=== PATIENT | female | born 1955 | race Caucasian/White ===

== ENCOUNTER 2023-01-11 07:59 | Observation (INO) | payer MEDICARE, MEDICAID, SELFPAY ==
[2023-01-11] VITALS (18 sets, daily range): BP systolic 88–137; BP diastolic 45–89; PULSE 53–139; RESP 12–26; TEMP 36.6–37; O2SAT 93–98; BMI 35.0; BMI 36.3
--- NOTE | 2023-01-11 08:14 | PC.NURSE ---
Dr. Kat at bedside. He was notified pt meet criteria for CODE SEPSIS.
--- NOTE | 2023-01-11 08:31 | ECG_ITS ---
APPROVED REPORT Exam: Resting ECG HR:148 bpm ECG Measurements Heart Rate 148 AXES QRSd 77 QRS 17 QT 270 T -8 QTc 355 Conclusion ATRIAL FIBRILLATION WITH RAPID VENTRICULAR RESPONSE NONSPECIFIC ST & T-WAVE ABNORMALITY ABNORMAL RHYTHM ECG UNCONFIRMED REPORT Electronically signed by : Pancho Parikh MD 01/12/2023 08:49:16
[2023-01-11 08:35] LABS: Basophils % 0.2 % (0.1-2.0); Eosinophils # 0.2 K/mm3 (0.0-0.4); Eosinophils % 1.7 % (0.1-12.0); Hematocrit 47.3 % (37.0-47.0); Hemoglobin 14.7 g/dL (12.2-16.2); Lymphocytes # 1.7 K/mm3 (0.7-4.5); Mean Corpuscular HGB Conc 31.2 g/dL (31.8-35.4); Mean Corpuscular Hemoglobin 29.6 pg (27.0-31.2); Mean Platelet Volume 8.9 fl (7.4-10.4); Monocytes # 1.1 K/mm3 (0.1-1.0); Monocytes % 8.9 % (1.7-9.3); Neutrophils # 9.8 K/mm3 (1.8-7.8); Neutrophils % 76.2 % (37.0-80.0); Platelet Count 187 K/mm3 (142-424); Red Blood Count 4.97 M/mm3 (4.20-5.40); Red Cell Distribution Width 15.3 % (11.5-17.5); White Blood Count 12.8 K/mm3 (4.8-10.8)
[2023-01-11 08:39] LABS: Chloride 103 mmol/L (98-107); Potassium 4.7 mmoL/L (3.5-5.1); Sodium 138 mmol/L (136-145)
[2023-01-11 08:42] LABS: Alanine Aminotransferase 33 U/L (12-78); Albumin Level 4.1 g/dl (3.5-5.0); Albumin/Globulin Ratio 1.7 (1.1-1.8); Alkaline Phosphatase 78 U/L (38-126); Anion Gap 13.7 mEq/L (5-15); Aspartate Amino Transferase 27 U/L (14-36); Bilirubin,Total 0.6 mg/dl (0.2-1.3); Blood Urea Nitrogen 56 mg/dl (7-17); Calcium 9.3 mg/dl (8.4-10.2); Carbon Dioxide 26 mmol/L (22.0-30.0); Creatinine Clearance Estimated 63 mL/min (50-200); Estimated Glomerular Filt Rate 38 ml/min (>60); GFR (African American) 46 ML/MIN (>60); Globulin 2.4 g/dL (1.3-3.2); Glucose 159 mg/dl (74-100); Total Protein,Serum 6.5 g/dl (6.3-8.2)
--- NOTE | 2023-01-11 08:42 | HMH.EDGENADL ---
Discharge Plan Disposition Chief Complaint: GI Bleed Clinical Impressions Clinical Impression: AWILDA (acute kidney injury), Lower GI bleed, Sepsis, Atrial fibrillation with RVR Discharge ED Provider: Seven Kat General Adult HPI General Chief complaint: GI Bleed Stated complaint: Abd pain Time Seen by Provider: 01/11/23 08:03 Mode of Arrival: EMS Source of Information: Patient and EMS Limitations: No Limitations Description of Symptoms (Recalled from ER Triage Doc. by RN): Pt c/o bile emesis and bright red blood per rectum that began @ 0230 this am. States she was started on Macrobid yesterday d/t a UTI. She does take eliquis and 81mg aspirin daily d/t afib. Pt reports some abd pain but persistant nausea. EMS gave zofran 4mg odt in route. Pt reports hx of ABS surgeries 2x hiatla hernia & 1x umbuilical hernia repair. She is also s/p cholecycectomy and partial hysterectomy. History of Present Illness HPI narrative: 67-year-old female with history of hypertension, hyperlipidemia, CHF, A-fib on Xarelto, hemorrhoids, ventral hernia status post herniorrhaphy x3, hysterectomy, cholecystectomy, presenting with bright red blood per rectum, vomiting, abdominal distention. Patient states that she woke up today, 01/11 at 2 in the morning and felt nauseated. She had previously been constipated the past few days, but when waking up, felt nauseated and stomach cramping. Had large volume bowel movement that was dark, but normal consistency. Since that time, has had multiple, loose, bright red stools. She then started vomiting shortly thereafter nonbloody, nonbilious, yellowish foamy vomit. States that she is still and passing gas. Feeling nauseated at this time, but denies fevers, chills, cough, chest pain, shortness of breath, lightheadedness, syncope, recent travel. States that she has been taking all her medications as prescribed. Related Data Home Medications Medication Instructions Recorded Confirmed allopurinol 100 mg tablet 100 mg PO DAILY gout 01/11/23 01/11/23 amlodipine 5 mg tablet 5 mg PO DAILY High Blood Pressure 01/11/23 01/11/23 apixaban 5 mg tablet (Eliquis) 5 mg PO BID Blood Thinner/Afib 01/11/23 01/11/23 aspirin 81 mg chewable tablet 81 mg PO DAILY heart health 01/11/23 01/11/23 atorvastatin 10 mg tablet 10 mg PO HS Cholesterol 01/11/23 01/11/23 buspirone 15 mg tablet 15 mg PO BID Anxiety 01/11/23 01/11/23 calcium carbonate 250 mg-vitamin 2 tab PO DAILY Supplement 01/11/23 01/11/23 D3 3.125 mcg (125 unit) tablet (Oyster Shell + D3) diclofenac sodium 75 mg 75 mg PO BIDP PRN Mild Pain (Scale 01/11/23 01/11/23 tablet,delayed release Score 1-4) fluoxetine 40 mg capsule 40 mg PO DAILY Mood 01/11/23 01/11/23 fluticasone fur. 200 mcg-umeclid 1 ea inhalation DAILY Breathing 01/11/23 01/11/23 62.5 mcg-vilant 25 mcg Problems inhalat.powder (Trelegy Ellipta) furosemide 20 mg tablet (Lasix) 20 mg PO BID Fluid 01/11/23 01/11/23 gabapentin 300 mg capsule 300 mg PO BID Pain 01/11/23 01/11/23 lisinopril 10 mg tablet 10 mg PO BID High Blood Pressure 01/11/23 01/11/23 metoprolol tartrate 50 mg tablet 50 mg PO BID High Blood Pressure 01/11/23 01/11/23 montelukast 10 mg tablet 10 mg PO PM Allergy Symptoms 01/11/23 01/11/23 nitrofurantoin 100 mg PO BID Infection 01/11/23 01/11/23 monohydrate/macrocrystals 100 mg capsule (Macrobid) omeprazole 20 mg tablet,delayed 20 mg PO DAILY Acid Reflux 01/11/23 01/11/23 release potassium chloride 20 mEq 20 meq PO DAILY Supplement 01/11/23 01/11/23 tablet,extended release(part/cryst) theophylline 400 mg 400 mg PO DAILY Asthma 01/11/23 01/11/23 tablet,extended release 24 hr tizanidine 4 mg tablet 4 mg PO Q8HP PRN Muscle Spasm 01/11/23 01/11/23 Allergies Allergy/AdvReac Type Severity Reaction Status Date / Time Penicillins Allergy Verified 01/11/23 08:19 Sulfa (Sulfonamide Allergy Verified 10/03/23 08:19 Antibiotics) PFSH PFSH Disclaimer: The information contained in th
[2023-01-11 08:43] LABS: Lactic Acid 2.6 mmol/L (0.7-2.1)
--- NOTE | 2023-01-11 08:46 | CT_ITS ---
FINAL REPORT TECHNIQUE: Pre-and postcontrast images of the abdomen and pelvis were performed by computed tomography. Extensive 3-D reconstruction images were performed. A CTA was performed. This study was performed with techniques to keep radiation doses as low as reasonably achievable (ALARA). Individualized dose reduction techniques using automated exposure control or adjustment of mA and/or kV according to the patient''s size were employed. CLINICAL HISTORY: LGIB with BRBPR FINDINGS: ABDOMEN: The lung bases are clear. The patient is status post cholecystectomy. Precontrast images demonstrate no evidence of nephrolithiasis. No adrenal masses are identified. There are bilateral renal cysts. The liver, spleen and pancreas are unremarkable. There are several diverticula of the sigmoid colon. The patient is status post hysterectomy. There is no evidence of extravasation to suggest active bleed. CTA: There is moderate vascular calcification. The abdominal aorta is proper caliber. There is abnormal orientation of the proximal celiac axis with severe stenosis proximally. Finding is best seen on the sagittal reformatted images worrisome for median arcuate ligament syndrome. The proximal SMA and FELICIA are patent. The renal arteries are patent bilaterally. There is no evidence of significant common, external, or internal iliac artery stenosis. There is mild stenosis of the bilateral common and external iliac arteries. IMPRESSION: Findings worrisome for median arcuate ligament syndrome. No significant stenosis. Sigmoid diverticulosis without evidence of diverticulitis. Reviewed, Interpreted and Dictated by Vlad Alfaro III, MD Transcribed by Sasha Arias Authenticated and [facility]
[2023-01-11 08:59] LABS: Activated Partial Thrombo Time 22.8 seconds (22.8-30.6); INR 0.95 (0.9-1.1); Lipase 258 U/L (23-300); Prothrombin Time 10.3 seconds (10.1-12.5)
[2023-01-11 09:01] LABS: Microscopic, Urine URINE MICROSCOPIC (MICROSCOPIC)
[2023-01-11 09:02] LABS: Appearance,Urine CLEAR (Clear); Bilirubin,Urine Negative (Negative); Blood, Urine TRACE-I (Negative); Color,Urine YELLOW (Yellow); Glucose,Urine (UA) Negative (Negative); Ketones,Urine Negative (Negative); Leukocyte Esterase,Urine Negative (Negative); Nitrate,Urine Negative (Negative); Protein,Urine Negative (Negative); Specific Gravity, Urine 1.025 (1.005-1.030); Urobilinogen,Urine 0.2 EU/dl (0.2)
[2023-01-11 09:10] LABS: Bacteria,Urine Trace /lpf; RBC,Urine Occasional #/hpf (0-3); Squamous Epithelial Cell,Urine Occasional #/hpf (0-5)
--- NOTE | 2023-01-11 09:32 | PC.NURSE ---
pt assisted to/from bathroom with walker and staff sba. placed back on monitor and gave meds.
--- NOTE | 2023-01-11 09:40 | PC.NURSE ---
pt to ct scan via stretcher
--- NOTE | 2023-01-11 09:46 | EXP.PHA.CONS ---
Pharmacy Consult Date: 01/11/23 Time: 09:46 Referring provider: DR. SALOMON Reason for Consult:: VANCOMYCIN Allergies Allergy/AdvReac Type Severity Reaction Status Date / Time Penicillins Allergy Verified 01/11/23 08:19 Sulfa (Sulfonamide Allergy Verified 01/11/23 08:19 Antibiotics) Home Medications Medication Instructions Recorded Confirmed Type allopurinol 100 mg tablet 100 mg PO DAILY gout 01/11/23 01/11/23 History amlodipine 5 mg tablet 5 mg PO DAILY High Blood Pressure 01/11/23 01/11/23 History apixaban 5 mg tablet (Eliquis) 5 mg PO BID afib blood thinner 01/11/23 01/11/23 History aspirin 81 mg chewable tablet 81 mg PO DAILY heart health 01/11/23 01/11/23 History atorvastatin 10 mg tablet 10 mg PO HS High Cholesterol 01/11/23 01/11/23 History buspirone 15 mg tablet 15 mg PO BID Anxiety 01/11/23 01/11/23 History calcium carbonate 250 mg-vitamin 2 tab PO DAILY Supplement 01/11/23 01/11/23 History D3 3.125 mcg (125 unit) tablet (Oyster Shell + D3) diclofenac sodium 75 mg 75 mg PO BID PRN Pain 01/11/23 01/11/23 History tablet,delayed release fluoxetine 40 mg capsule 40 mg PO DAILY Depression 01/11/23 01/11/23 History furosemide 20 mg tablet (Lasix) 20 mg PO BID fluid overload 01/11/23 01/11/23 History gabapentin 300 mg capsule 300 mg PO BID neuropathy 01/11/23 01/11/23 History lisinopril 10 mg tablet 10 mg PO BID High Blood Pressure 01/11/23 01/11/23 History metoprolol tartrate 50 mg tablet 50 mg PO BID afib heart rate 01/11/23 01/11/23 History montelukast 10 mg tablet 10 mg PO HS Allergy Symptoms 01/11/23 01/11/23 History nitrofurantoin 100 mg PO BID UTI- dx 01/10 @ PCP 01/11/23 01/11/23 History monohydrate/macrocrystals 100 mg capsule (Macrobid) omeprazole 20 mg tablet,delayed 20 mg PO DAILY gerd 01/11/23 01/11/23 History release potassium chloride 20 mEq 20 meq PO DAILY Supplement 01/11/23 01/11/23 History tablet,extended release(part/cryst) theophylline 400 mg 400 mg PO DAILY Asthma 01/11/23 01/11/23 History tablet,extended release 24 hr tizanidine 4 mg tablet 4 mg PO Q8H PRN nerves 01/11/23 01/11/23 History New Prescriptions to Start Prescriptions: Height: 1.7 m Weight: 101.605 kg Laboratory Results:: Laboratory Results - last 24 hr 01/11/23 08:10: WBC 12.8 H, RBC 4.97, Hgb 14.7, Hct 47.3 H, MCV 95.0, MCH 29.6, MCHC 31.2 L, RDW 15.3, Plt Count 187, MPV 8.9, Neut % (Auto) 76.2, Lymph % (Auto) 13.0, [place] % (Auto) 8.9, Eos % (Auto) 1.7, Baso % (Auto) 0.2, Neut # (Auto) 9.8 H, Lymph # (Auto) 1.7, [place] # (Auto) 1.1 H, Eos # (Auto) 0.2, Baso # (Auto) 0.0, PT 10.3, INR 0.95, APTT 22.8, Sodium 138, Potassium 4.7, Chloride 103, Carbon Dioxide 26, Anion Gap 13.7, BUN 56 H, Creatinine 1.40 H, Estimated Creat Clear 63, Estimated GFR 38 L, Est GFR ( Amer) 46 L, Glucose 159 H, Lactate 2.6 H, Calcium 9.3, Total Bilirubin 0.6, AST 27, ALT 33, Alkaline Phosphatase 78, Total Protein 6.5, Albumin 4.1, Globulin 2.4, Albumin/Globulin Ratio 1.7, Lipase 258 01/11/23 08:55: Urine Color Yellow, Urine Appearance Clear, Urine pH 6.0, Ur Specific [place] 1.025, Urine Protein Negative, Urine Glucose (UA) Negative, Urine Ketones Negative, Urine Blood Trace-i, Urine Nitrate Negative, Urine Bilirubin Negative, Urine Urobilinogen 0.2, Ur Leukocyte Esterase Negative, Urine RBC Occasional, Urine WBC None, Ur Squamous Epith Cells Occasional, Urine Bacteria Trace Medical History: Medical History (Updated 01/11/23 @ 09:16 by Anupama Briland, RN) A-fib Allergic rhinitis Arthritis Gout High blood pressure High cholesterol History of asthma Neuropathy Assessment and Plan Assessment and plan all Dx Assessment and Plan for all problems:: Pharmacokinetic dosing service Objective: Patient: Floor: Age: 67 yo Serum creatinine: 1.4 mg/dL Height: 66.9 Inches Weight (kg): 101.6 Assessment: IBW (kg): 61.37 Dosing wt(kg): 101.6 Estimate
--- NOTE | 2023-01-11 10:03 | PC.NURSE ---
pt back from ct scan
--- NOTE | 2023-01-11 10:26 | PC.NURSE ---
rounded on pt, denies any pain and is resting quietly in bed. NO needs at this time. Family at bedside
--- NOTE | 2023-01-11 12:00 | PC.NURSE ---
Dr. Kat s/w hospitalist for possible admission
--- NOTE | 2023-01-11 12:09 | PC.NURSE ---
Dr. Kat at bedside s/w pt & her brother
--- NOTE | 2023-01-11 12:10 | EXP.HP ---
History of Present Illness *Admission Date: 01/11/23 *Reason for visit:: nausea, bloody BMs *History of present illness: Ms. Wilder is a 67-year-old female with history of hypertension, hyperlipidemia, CHF, A-fib on Xarelto, multiple ventral hernia repairs, who presented with cute onset of nausea this morning and bloody bowel movements. States she woke up about 2 AM and was feeling nauseated. Had some constipation with a hard stool that was difficult to pass. Followed by blood that she attributed to her hemorrhoids. She went back to bed and got up little bit later feeling nauseous again, this time she threw up and it was nonbilious, nonbloody. But was followed by loose watery stool that was bloody. Came to the ER because of concern for bloody bowel movements. Denies any chest pain, chills, cough, shortness of breath, fever, confusion. Does complain of being weak but has been up since 2 AM. On evaluation in the ER, hemoglobin within a normal range at 14.7. BUN 56 and creatinine 1.4. Also found cardia with heart rate in the 130s, tachypneic in the 20s, and a white cell count greater than 12,000. Given concern for SIRS, GI bleed, ER consulted medicine for admission and further management. After arrival to the floor, patient is stable on room air. Appears comfortable at rest. Still having some nausea that responded well to Zofran in the ER. Denies any further bowel movements at this time. Heart rate is better for etizolam in the ER. She missed her morning meds and her morning metoprolol for rate control. Is afebrile and hemodynamically stable. [facility] Disclaimer: The information contained in this section may have been updated after the patient was seen, as this information can be updated by other users. Medical History (Updated 01/11/23 @ 14:31 by Sukumar Bhakta MD) A-fib Allergic rhinitis Arthritis Gout High blood pressure High cholesterol History of asthma Neuropathy Surgical History History of hernia surgery S/P cholecystectomy S/P partial hysterectomy Social History Smoking Status: Former smoker alcohol intake: never current occupational status: unemployed Travel in the last 8 weeks: None Review of Systems Review of Systems Review of systems (narrative): 14 point review of systems performed, pertinent positives and negatives as per [facility] Meds Home Medications and Allergies Home Medications Medication Instructions Recorded Confirmed Type allopurinol 100 mg tablet 100 mg PO DAILY gout 01/11/23 01/11/23 History amlodipine 5 mg tablet 5 mg PO DAILY High Blood Pressure 01/11/23 01/11/23 History apixaban 5 mg tablet (Eliquis) 5 mg PO BID Blood Thinner/Afib 01/11/23 01/11/23 History aspirin 81 mg chewable tablet 81 mg PO DAILY heart health 01/11/23 01/11/23 History atorvastatin 10 mg tablet 10 mg PO HS Cholesterol 01/11/23 01/11/23 History buspirone 15 mg tablet 15 mg PO BID Anxiety 01/11/23 01/11/23 History calcium carbonate 250 mg-vitamin 2 tab PO DAILY Supplement 01/11/23 01/11/23 History D3 3.125 mcg (125 unit) tablet (Oyster Shell + D3) diclofenac sodium 75 mg 75 mg PO BIDP PRN Mild Pain (Scale 01/11/23 01/11/23 History tablet,delayed release Score 1-4) fluoxetine 40 mg capsule 40 mg PO DAILY Mood 01/11/23 01/11/23 History fluticasone fur. 200 mcg-umeclid 1 ea inhalation DAILY Breathing 01/11/23 01/11/23 History 62.5 mcg-vilant 25 mcg Problems inhalat.powder (Trelegy Ellipta) furosemide 20 mg tablet (Lasix) 20 mg PO BID Fluid 01/11/23 01/11/23 History gabapentin 300 mg capsule 300 mg PO BID PRN Pain 01/11/23 01/11/23 History lisinopril 10 mg tablet 10 mg PO BID High Blood Pressure 01/11/23 01/11/23 History metoprolol tartrate 50 mg tablet 50 mg PO BID High Blood Pressure 01/11/23 01/11/23 History montelukast 10 mg tablet 10 mg PO PM Allergy Symptoms 01/11/23 01/11/23 History nitrofurantoin
--- NOTE | 2023-01-11 12:15 | PC.NURSE ---
Dr. Kat reports that Dr. Bhakta accepted pt.
[2023-01-11 12:26] LABS: Reflex Lactic Add Lactic Reflex
--- NOTE | 2023-01-11 12:30 | PC.NURSE ---
[facility] NOTIFIED OF ADMISSION, WILL GET PT A BED
--- NOTE | 2023-01-11 12:35 | HMH.PHAINT1 ---
Pharmacy Intervention Comments: MEDICATION RECONCILIATION COMPLETED ON PATIENT USING EXTERNAL FILL HISTORY FROM PHARMACY. -MICHAEL SWIFT, [place]
[2023-01-11 12:46] LABS: NT Pro Brain Natriuretic Pep. 347 pg/mL (0-125)
[2023-01-11 12:50] LABS: Lactic Acid Follow Up (RFLX 1) 1.8 mmol/L (0.7-2.1)
[2023-01-11 12:51] LABS: Troponin I < 0.01 ng/ml (0.00-0.034)
[2023-01-11 13:05] LABS: Troponin I < 0.01 ng/ml (0.00-0.034)
[2023-01-11 15:16] LABS: Theophylline 9.1 ug/ml (10-20)
[2023-01-11 15:23] LABS: Hematocrit 40.2 % (37.0-47.0)
[2023-01-11 15:46] LABS: Hemoglobin 12.5 g/dL (12.2-16.2)
[2023-01-11 15:47] LABS: Troponin I < 0.01 ng/ml (0.00-0.034)
[2023-01-11 15:59] LABS: Hemoglobin A1C 6.4 % (4.0-6.0)
--- NOTE | 2023-01-11 19:16 | PC.NURSE ---
Patient continues to have bright red bleeding per rectum. patient has complaints of abdominal cramping.
--- NOTE | 2023-01-11 19:31 | EXP.SURG.CON ---
History of Present Illness *Admission Date: 01/11/23 *Reason for visit:: Lower GI bleed *History of present illness: Patient is a 67-year-old female from [facility] with history of hypertension, hyperlipidemia, congestive heart failure, atrial fibrillation on Elliquis. She has a prior history of cholecystectomy and hysterectomy. She has had a history of multiple ventral hernia repairs. Her surgeries were in [place] and at [place]. She presented to the emergency department earlier today on 01/11/2023 with initially symptoms of nausea and some abdominal cramping followed by bilious emesis and passage of bright red blood per rectum that began at approximately 2:30 AM on 01/11/2023. She described a sensation of constipation . However her bowels had moved normally the day before and she described onset of loose watery particulate stool which was followed subsequently by multiple stools with bright red blood. This prompted her to come to the emergency department by EMS. Evaluation in the emergency department revealed normal range hemoglobin of 14.7. She did however have elevated BUN of 56 with a creatinine of 1.4. Unknown baseline. She also had tachycardia with a rate in the 130s. She underwent a CT angiogram of the abdomen and pelvis which reveals no evidence of any arterial stenosis but findings concerning for median arcuate ligament syndrome . She was admitted for inpatient management to the hospitalist service. Discussion was held by the hospitalist with Dr. Rivers for planned consult which was ordered for tomorrow on 01/12/2023. I was informed of the consult this evening. Patient states that her nausea feels somewhat better. She still does have some abdominal discomfort. Patient has had colonoscopy at outside facility she states that about 4 to 5 years ago. Reportedly unremarkable but details unknown. Never had prior EGD. [facility] Disclaimer: The information contained in this section may have been updated after the patient was seen, as this information can be updated by other users. Medical History (Updated 01/11/23 @ 14:31 by Sukumar Bhakta MD) A-fib Allergic rhinitis Arthritis Gout High blood pressure High cholesterol History of asthma Neuropathy Surgical History History of hernia surgery S/P cholecystectomy S/P partial hysterectomy Social History Smoking Status: Former smoker alcohol intake: never current occupational status: unemployed Travel in the last 8 weeks: None Meds Home Medications and Allergies Home Medications Medication Instructions Recorded Confirmed Type allopurinol 100 mg tablet 100 mg PO DAILY gout 01/11/23 01/11/23 History amlodipine 5 mg tablet 5 mg PO DAILY High Blood Pressure 01/11/23 01/11/23 History apixaban 5 mg tablet (Eliquis) 5 mg PO BID Blood Thinner/Afib 01/11/23 01/11/23 History aspirin 81 mg chewable tablet 81 mg PO DAILY heart health 01/11/23 01/11/23 History atorvastatin 10 mg tablet 10 mg PO HS Cholesterol 01/11/23 01/11/23 History buspirone 15 mg tablet 15 mg PO BID Anxiety 01/11/23 01/11/23 History calcium carbonate 250 mg-vitamin 2 tab PO DAILY Supplement 01/11/23 01/11/23 History D3 3.125 mcg (125 unit) tablet (Oyster Shell + D3) diclofenac sodium 75 mg 75 mg PO BIDP PRN Mild Pain (Scale 01/11/23 01/11/23 History tablet,delayed release Score 1-4) fluoxetine 40 mg capsule 40 mg PO DAILY Mood 01/11/23 01/11/23 History fluticasone fur. 200 mcg-umeclid 1 ea inhalation DAILY Breathing 01/11/23 01/11/23 History 62.5 mcg-vilant 25 mcg Problems inhalat.powder (Trelegy Ellipta) furosemide 20 mg tablet (Lasix) 20 mg PO BID Fluid 01/11/23 01/11/23 History gabapentin 300 mg capsule 300 mg PO BID PRN Pain 01/11/23 01/11/23 History lisinopril 10 mg tablet 10 mg PO BID High Blood Pressure 01/11/23 01/11/23 History metoprolol tartrate 50 mg tablet 50 mg PO
[2023-01-12] VITALS (11 sets, daily range): BP systolic 89–143; BP diastolic 43–94; PULSE 67–77; RESP 16–18; TEMP 36.2–36.9; O2SAT 84–97; BMI 36.6
--- NOTE | 2023-01-12 03:18 | PC.NURSE ---
Pt is alert and oriented x4, Pt seems pleasant and receptive to care. Pt sleeps with CPAP at night and seems to have tolerated it well, Pt pain has been managed and reports no pain at this time. Pt hasnt had any bowel movements this shift thus far, Will continue to monitor bowel movementr
[2023-01-12 06:28] LABS: Basophils % 0.4 % (0.1-2.0); Chloride 106 mmol/L (98-107); Eosinophils # 0.2 K/mm3 (0.0-0.4); Eosinophils % 3.5 % (0.1-12.0); Hematocrit 42.5 % (37.0-47.0); Hemoglobin 13.2 g/dL (12.2-16.2); Lymphocytes # 1.6 K/mm3 (0.7-4.5); Lymphocytes % 24.1 % (10-50); Mean Corpuscular HGB Conc 31.1 g/dL (31.8-35.4); Mean Corpuscular Hemoglobin 29.4 pg (27.0-31.2); Mean Corpuscular Volume 94.8 fl (81-99); Mean Platelet Volume 8.9 fl (7.4-10.4); Monocytes # 0.6 K/mm3 (0.1-1.0); Monocytes % 9.2 % (1.7-9.3); Neutrophils % 62.8 % (37.0-80.0); Platelet Count 147 K/mm3 (142-424); Potassium 4.5 mmoL/L (3.5-5.1); Red Blood Count 4.48 M/mm3 (4.20-5.40); Red Cell Distribution Width 15.4 % (11.5-17.5); Sodium 137 mmol/L (136-145); White Blood Count 6.4 K/mm3 (4.8-10.8)
[2023-01-12 06:31] LABS: Alanine Aminotransferase 27 U/L (12-78); Albumin Level 3.5 g/dl (3.5-5.0); Albumin/Globulin Ratio 1.5 (1.1-1.8); Alkaline Phosphatase 70 U/L (38-126); Anion Gap 9.5 mEq/L (5-15); Aspartate Amino Transferase 26 U/L (14-36); Bilirubin,Total 0.9 mg/dl (0.2-1.3); Blood Urea Nitrogen 29 mg/dl (7-17); Calcium 8.5 mg/dl (8.4-10.2); Carbon Dioxide 26 mmol/L (22.0-30.0); Creatinine Clearance Estimated 75 mL/min (50-200); Estimated Glomerular Filt Rate 45 ml/min (>60); GFR (African American) 54 ML/MIN (>60); Globulin 2.4 g/dL (1.3-3.2); Glucose 117 mg/dl (74-100); Total Protein,Serum 5.9 g/dl (6.3-8.2)
--- NOTE | 2023-01-12 07:25 | EXP.SURG.PN ---
Subjective Patient reports: no new complaints and feels better Narrative: Still complains of some mid/upper abdominal pain. She reports that although her pain was worse yesterday she does have a long history of intermittent abdominal pain/bloating. Exam Data for Last 24 hours Vital signs and Labs for Last 24 Hours: Temp Pulse Resp BP Pulse Ox O2 Del Method 98.5 F 77 18 132/94 H 95 Room Air 01/12/23 07:19 01/12/23 07:19 01/12/23 07:19 01/12/23 07:19 01/12/23 07:19 01/12/23 07:19 Laboratory Results - last 24 hr 01/11/23 08:10: WBC 12.8 H, RBC 4.97, Hgb 14.7, Hct 47.3 H, MCV 95.0, MCH 29.6, MCHC 31.2 L, RDW 15.3, Plt Count 187, MPV 8.9, Neut % (Auto) 76.2, Lymph % (Auto) 13.0, Holt % (Auto) 8.9, Eos % (Auto) 1.7, Baso % (Auto) 0.2, Neut # (Auto) 9.8 H, Lymph # (Auto) 1.7, Holt # (Auto) 1.1 H, Eos # (Auto) 0.2, Baso # (Auto) 0.0, PT 10.3, INR 0.95, APTT 22.8, Sodium 138, Potassium 4.7, Chloride 103, Carbon Dioxide 26, Anion Gap 13.7, BUN 56 H, Creatinine 1.40 H, Estimated Creat Clear 63, Estimated GFR 38 L, Est GFR ( Amer) 46 L, Glucose 159 H, Lactate 2.6 H, Calcium 9.3, Total Bilirubin 0.6, AST 27, ALT 33, Alkaline Phosphatase 78, Troponin I < 0.01, NT-Pro-B Natriuret Pep 347 H, Total Protein 6.5, Albumin 4.1, Globulin 2.4, Albumin/Globulin Ratio 1.7, Lipase 258 01/11/23 08:55: Urine Color Yellow, Urine Appearance Clear, Urine pH 6.0, Ur Specific Bowlegs 1.025, Urine Protein Negative, Urine Glucose (UA) Negative, Urine Ketones Negative, Urine Blood Trace-i, Urine Nitrate Negative, Urine Bilirubin Negative, Urine Urobilinogen 0.2, Ur Leukocyte Esterase Negative, Urine RBC Occasional, Urine WBC None, Ur Squamous Epith Cells Occasional, Urine Bacteria Trace 01/11/23 12:31: Lactate 1.8, Troponin I < 0.01 01/11/23 14:48: Hgb 12.5 D, Hct 40.2, Hemoglobin A1c 6.4 H, Troponin I < 0.01, Theophylline 9.1 L 01/12/23 06:07: WBC 6.4 D, RBC 4.48, Hgb 13.2, Hct 42.5, MCV 94.8, MCH 29.4, MCHC 31.1 L, RDW 15.4, Plt Count 147, MPV 8.9, Neut % (Auto) 62.8, Lymph % (Auto) 24.1, Holt % (Auto) 9.2, Eos % (Auto) 3.5, Baso % (Auto) 0.4, Neut # (Auto) 4.0, Lymph # (Auto) 1.6, Holt # (Auto) 0.6, Eos # (Auto) 0.2, Baso # (Auto) 0.0, Sodium 137, Potassium 4.5, Chloride 106, Carbon Dioxide 26, Anion Gap 9.5, BUN 29 H D, Creatinine 1.20 H, Estimated Creat Clear 75, Estimated GFR 45 L, Est GFR ( Amer) 54 L, Glucose 117 H D, Calcium 8.5, Total Bilirubin 0.9, AST 26, ALT 27, Alkaline Phosphatase 70, Total Protein 5.9 L, Albumin 3.5 D, Globulin 2.4, Albumin/Globulin Ratio 1.5 I & O for Last 24 hours: Intake & Output 01/09/23 01/10/23 01/11/23 01/12/23 11:59 11:59 11:59 11:59 Intake Total 2470 / 2470 Output Total 0 / 0 Balance 2470 / 2470 Weight 224 lb 228 lb Constitutional Constitutional: no acute distress *Routine Respiratory Exam Respiratory: Absent respiratory distress *Routine Cardiovascular Exam Cardiovascular: Absent tachycardia *Routine Abdominal Exam Abdominal: Present soft and tenderness Progress Note: A&P Assessment and plan (1) Lower GI bleed: Status: Acute Assessment and plan: No evidence of ongoing blood loss. Plan esophagogastroduodenoscopy this morning to evaluate for possible upper source . In addition, the patient has chronic mid/upper abdominal pain warranting esophagogastroduodenoscopy. I have discussed the risks and benefits including, but not limited to: Bleeding Infection Damage to surrounding tissue Inherent risks of sedation The patient agrees to proceed. (2) Abdominal pain: Status: Acute Assessment and plan: Outpatient surgical evaluation (see #4 below) and gastroenterology evaluation (see #3 below) pending. (3) Abdominal bloating: Status: Acute Assessment and plan: Recommend gastroenterology consultation as an outpatient in the near future (4) Median arcuate ligament syndrome: Status: Acute Assessment and plan: I have discussed CT findi
--- NOTE | 2023-01-12 07:30 | P.PNANES_ITS ---
[facility] Disclaimer: The information contained in this section may have been updated after the patient was seen, as this information can be updated by other users. Medical History A-fib Allergic rhinitis Arthritis Gout High blood pressure High cholesterol History of asthma Neuropathy Surgical History History of hernia surgery S/P cholecystectomy S/P partial hysterectomy Social History Smoking Status: Former smoker alcohol intake: never substance use type: denies use current occupational status: unemployed Travel in the last 8 weeks: None [facility] Anesthesia Checklist Patient Identification Patient Identification: Arm Band and Verbal (Name & ) Structural Data Admitted From: Inpatient Planned Operative Procedure/s: EGD Consent for Planned Operative Procedure(s) Verified: Yes NPO Status Verified Time NPO: 00:00 Chart Verification Results Verified: CBC and BMP Additional verifications Anesthesia Reactions: No Airway Assessment Mallampati Score:: Class III C-Spine Mobility Assessed: Yes TMJ Mobility Assessed: Yes Dentition: Edentulous Neurological Assessment Level of Consciousness: Awake Hx Seizures: No Numbness or tingling in extremities: No Anesthesia Plan Anesthesia Risk discussed: Yes Anesthesia Plan: Verified ASA Class: III Anesthesia Type: MAC
[2023-01-12 07:59] LABS: Magnesium 2.1 mg/dl (1.6-2.3)
--- NOTE | 2023-01-12 08:03 | HMH.SCOPE ---
Procedure: Date: 01/12/23 Patient Date of :: 1955 Procedure Performed:: Esophagogastroduodenoscopy with biopsy Indications:: Gastrointestinal hemorrhage Performing Provider:: Roel Rivers MD Referring Provider:: . Sedation:: Monitored anesthesia care Procedure:: After informed consent was obtained the patient was taken to the endoscopy suite. Sedation ensued after the patient was transferred to the left lateral decubitus position. Pulse, blood pressure, and oxygen saturation were monitored throughout the procedure. The endoscope was advanced beyond the duodenal bulb. Retroflexion within the gastric lumen was accomplished. The gastroscope was carefully removed and the patient was transferred to recovery in stable condition. Please see findings and specimens below for detail. Findings:: Gastroesophageal junction at 40 cm Patchy severe gastritis in the cardia (particularly just beyond gastroesophageal junction) No evidence of true ulceration No evidence of active or recent hemorrhage Isolated small fundic gland polyps within cardia Specimens:: Antral biopsy Recommendations:: Proton pump inhibition Likely repeat esophagogastroduodenoscopy in 6-8 weeks secondary to severe nature of patchy gastric cardia inflammation Note: Outpatient gastroenterology evaluation pending secondary to patient's history of abdominal bloating and intermittent abdominal pain. Outpatient tertiary surgical evaluation pending secondary to possible median arcuate ligament syndrome. Complications:: No immediate Estimated blood obtained (mL): 1 Colonoscopy Component Colonoscopy Component Was a colonoscopy performed during today's procedure?: No
--- NOTE | 2023-01-12 09:04 | ECG_ITS ---
APPROVED REPORT Exam: Resting ECG HR:68 bpm ECG Measurements Heart Rate 68 AXES OK 139 P 59 QRSd 82 QRS 37 QT 363 T 62 QTc 380 Conclusion SINUS RHYTHM NONSPECIFIC ST & T-WAVE ABNORMALITY BORDERLINE ECG UNCONFIRMED REPORT Electronically signed by : Pancho Parikh MD 01/13/2023 07:32:05
--- NOTE | 2023-01-12 12:45 | EXP.DC.SUM ---
General Admission date:: 01/11/23 Discharge date: 01/12/23 HPI HPI HPI: Patient is a 67-year-old female from [facility] with history of hypertension, hyperlipidemia, congestive heart failure, atrial fibrillation on Elliquis. She has a prior history of cholecystectomy and hysterectomy. She has had a history of multiple ventral hernia repairs. Her surgeries were in [place] and at [place]. She presented to the emergency department earlier today on 01/11/2023 with initially symptoms of nausea and some abdominal cramping followed by bilious emesis and passage of bright red blood per rectum that began at approximately 2:30 AM on 01/11/2023. She described a sensation of constipation . However her bowels had moved normally the day before and she described onset of loose watery particulate stool which was followed subsequently by multiple stools with bright red blood. This prompted her to come to the emergency department by EMS. Evaluation in the emergency department revealed normal range hemoglobin of 14.7. She did however have elevated BUN of 56 with a creatinine of 1.4. Unknown baseline. She also had tachycardia with a rate in the 130s. She underwent a CT angiogram of the abdomen and pelvis which reveals no evidence of any arterial stenosis but findings concerning for median arcuate ligament syndrome . She was admitted for inpatient management to the hospitalist service. Discussion was held by the hospitalist with Dr. Rivers for planned consult which was ordered for tomorrow on 01/12/2023. I was informed of the consult this evening. Patient states that her nausea feels somewhat better. She still does have some abdominal discomfort. Patient has had colonoscopy at outside facility she states that about 4 to 5 years ago. Reportedly unremarkable but details unknown. Never had prior EGD. Hospital Course Hospital Course Hospital Course: 67-year-old female who presents with symptoms of bloody stools and abdominal discomfort. Meeting criteria for SIRS with tachycardia, tachypnea, leukocytosis. No clear source of infection at this time. ER consulted medicine, discussed need for admission for serial labs, further work-up for GI bleed, ruling out infection. Medicine agreed to admit for further management. She did well during her admission. Hemoglobin remained fairly stable. Surgery was consulted and evaluated with an EGD. This identified some gastritis but no mirtha bleeding. Stable for discharge home for further management as an outpatient. Problems addressed as follows: GI bleed, lower versus upper -Patient on chronic anticoagulation. Started on Eliquis just a few weeks ago for paroxysmal A-fib. Presented to the ER with a bloody bowel movement. Initial hemoglobin of 14. Repeat the following morning of 13.2. Surgery was consulted, patient taken for EGD. Findings of gastritis but no mirtha bleeding or ulceration. Patient tolerated clear liquid diet. Had shared decision making with patient in regard to her anticoagulation and risk for bleeding. She has a [id number] score of 4 giving her a 4.8% risk of stroke in 1 year and has bled score of 3 given her 5.8% risk of another major bleed in a year. After significant discussion, patient and physician agreed to hold Eliquis at this time. Recommend close follow-up with her agility instructor to discuss alternative treatments or possible resumption of anticoagulation. Patient additionally started on pantoprazole, will continue this at discharge. EKG obtained on morning of discharge showing rate controlled and patient in sinus rhythm. EGD findings as follows: Gastroesophageal junction at 40 cm. Patchy severe gastritis in the cardia (particularly just beyond gastroesophageal junction). No evidence of true ulceration No evidence of active or recent hemorrhage. Isolated small fundic gland polyps within cardia Specimens:: Antral biopsy Recommendations:: Proton pump inhibition; Likely repeat esophagoga
--- NOTE | 2023-01-13 13:47 | SW/DCPLANNER ---
Follow up phone call made with this patient on 01/13/23: patient stated that she is doing well at home and was able to slat pickler all of her medications. Patient has no further needs at this time.
== END 2023-01-12 14:02 | disposition home or self-care (01) ==
LOC: ER 08:48 → 2ND 12:35
PROVIDERS: Surgery; Admitting Provider Internal Medicine Adolescent Medicine; Emergency Provider Emergency Medicine; PCP Internal Medicine; Visit Provider Internal Medicine Adolescent Medicine
PROC: 0DJ08ZZ Inspection of Upper Intestinal Tract, Via Natural or Artificial Opening Endoscopic (ICD-10-PCS; CPT 43235; principal; 2023-01-12 07:30)
DX: K29.01 Acute gastritis with bleeding (principal); N17.9 Acute kidney failure, unspecified; I48.0 Paroxysmal atrial fibrillation; E66.9 Obesity, unspecified; Z79.01 Long term (current) use of anticoagulants; J44.9 Chronic obstructive pulmonary disease, unspecified; I10 Essential (primary) hypertension; R10.9 Unspecified abdominal pain; R14.0 Abdominal distension (gaseous); I77.4 Celiac artery compression syndrome; Z79.899 Other long term (current) drug therapy; R06.9 Unspecified abnormalities of breathing
CPT/HCPCS: 43239; 36415; 74174; 80053; 80198; 81001; 83036; 83605; 83690; 83735; 83880; 84484; 85014; 85018; 85025; 85610; 85730; 87040; 88305; 93005; 94640; 99285; G0378; J0131; J2405; Q9967

== ENCOUNTER 2024-09-13 04:45 | Emergency (ER) | payer MEDICARE, MEDICAID, SELFPAY ==
[2024-09-13 04:52] VITALS: BP 199/87; PULSE 96; RESP 22; TEMP 36.6; O2SAT 92; BMI 35.5
--- NOTE | 2024-09-13 05:03 | XR_ITS ---
PROCEDURE INFORMATION: Exam: XR Chest Exam date and time: 09/13/2024 5:30 AM Age: 69 years old Clinical indication: Other: Leg swelling TECHNIQUE: Imaging protocol: Radiologic exam of the chest. Views: 1 view. COMPARISON: CT ANGIO ABDOMEN PELVIS 01/11/2023 9:57 AM FINDINGS: Tubes, catheters and devices: Two lead right heart pacemaker present. Lungs: The lungs are hyperinflated and hyperlucent consistent with COPD. No focal infiltrates noted. Pleural spaces: Unremarkable. No pleural effusion. No pneumothorax. Heart/Mediastinum: Unremarkable. No cardiomegaly. Bones/joints: Unremarkable. IMPRESSION: The lungs are hyperinflated and hyperlucent consistent with COPD. No focal infiltrates noted. Two lead right heart pacemaker present.
[2024-09-13 05:14] LABS: Basophils # 0.1 K/mm3 (0-0.2); Basophils % 0.7 % (0.1-2.0); Eosinophils # 0.7 Kmm3 (0.0-0.4); Eosinophils % 7.5 % (0.1-12.0); Hematocrit 38.2 % (37.0-47.0); Hemoglobin 12.4 g/dL (12.2-16.2); Immature Granulocytes # 0.02 10^3uL; Immature Granulocytes % 0.2 %; Lymphocytes # 2.4 K/mm3 (0.7-4.5); Lymphocytes % 25.2 % (10-50); Mean Corpuscular HGB Conc 32.5 g/dL (31.8-35.4); Mean Corpuscular Hemoglobin 29.1 pg (27.0-31.2); Mean Corpuscular Volume 89.7 fl (81-99); Monocytes # 1.3 K/mm3 (0.1-1.0); Monocytes % 13.7 % (1.7-9.3); Neutrophils # 5.1 K/mm3 (1.8-7.8); Neutrophils % 52.7 % (37.0-80.0); Nucleated Red Blood Cells # 0 10^3/uL; Nucleated Red Blood Cells % 0 %; Platelet Count 258 K/mm3 (142-424); Red Blood Count 4.26 M/mm3 (4.20-5.40); Red Cell Distribution Width 14.8 % (11.5-17.5); Red Cell Distribution Width-SD 48.2 fL; White Blood Count 9.7 K/mm3 (4.8-10.8)
[2024-09-13 05:23] LABS: Alanine Aminotransferase 14 U/L (12-78); Albumin Level 4.3 g/dl (3.5-5.0); Albumin/Globulin Ratio 1.7 (1.1-1.8); Alkaline Phosphatase 114 U/L (38-126); Anion Gap 11.5 mEq/L (5-15); Aspartate Amino Transferase 16 U/L (14-36); Bilirubin,Total 0.5 mg/dl (0.2-1.3); Blood Urea Nitrogen 16 mg/dl (7-17); Calcium 9.6 mg/dl (8.4-10.2); Carbon Dioxide 29 mmol/L (22.0-30.0); Chloride 104 mmol/L (98-107); Creatinine Clearance Estimated 61 mL/min (50-200); Estimated Glomerular Filt Rate 37 ml/min (>60); GFR (African American) 45 ML/MIN (>60); Globulin 2.5 g/dL (1.3-3.2); Glucose 90 mg/dl (74-100); Potassium 3.5 mmoL/L (3.5-5.1); Sodium 141 mmol/L (136-145); Total Protein,Serum 6.8 g/dl (6.3-8.2)
[2024-09-13 05:27] LABS: D-Dimer 0.99 ug/mL (0.0-0.5)
--- NOTE | 2024-09-13 05:27 | ECG_ITS ---
APPROVED REPORT Exam: Resting ECG HR:95 bpm ECG Measurements Heart Rate 95 AXES MO 298 P 111 QRSd 7 QRS 120 QT 119 T 266 QTc 171 Conclusion ELECTRONIC ATRIAL PACEMAKER ELECTRONIC VENTRICULAR PACEMAKER -- CONTOUR ANALYSIS BASED ON INTRINSIC RHYTHM RIGHT AXIS DEVIATION [QRS AXIS > 100] LOW QRS VOLTAGE IN EXTREMITY LEADS [QRS DEFLECTION < 0.5 mV IN LIMB LEADS] MODERATE ST DEPRESSION [0.05+ mV ST DEPRESSION] ABNORMAL QRS-T ANGLE [QRS-T AXIS DIFFERENCE > 60] No STEMI Electronically signed by : THOMPSON RIVAS, 09/14/2024 03:53:31
[2024-09-13 05:36] LABS: NT Pro Brain Natriuretic Pep. 291 pg/mL (0-125)
[2024-09-13 05:40] LABS: Troponin I < 0.01 ng/ml (0.00-0.034)
[2024-09-13 06:00] VITALS: BP 165/76; PULSE 82; RESP 16; O2SAT 96
--- NOTE | 2024-09-13 06:07 | [facility].EDGENADL ---
Discharge Plan Disposition Patient Disposition: Home, Self-Care Condition: Good Prescriptions Prescriptions: New hydroxyzine pamoate 25 mg capsule 25 mg PO Q8H PRN (Reason: itching) Qty: 20 0RF triamcinolone acetonide 0.1 % cream 1 applic topical BID PRN (Reason: itching) Qty: 80 0RF No Action fluoxetine 40 mg Capsule 40 mg PO DAILY furosemide [Lasix] 20 mg Tablet 20 mg PO BID nitrofurantoin monohyd/m-cryst [Macrobid] 100 mg Capsule 100 mg PO BID Rx Instructions: must administer with a meal/food Eliquis 5 mg Tablet 5 mg PO BID tizanidine 4 mg Tablet 4 mg PO Q8HP PRN (Reason: Muscle Spasm) allopurinol 100 mg Tablet 100 mg PO DAILY gabapentin 300 mg Capsule 300 mg PO BID PRN (Reason: Pain) aspirin 81 mg Tablet,Chewable 81 mg PO DAILY atorvastatin 10 mg Tablet 10 mg PO HS lisinopril 10 mg Tablet 10 mg PO BID metoprolol tartrate 50 mg Tablet 50 mg PO BID buspirone 15 mg Tablet 15 mg PO BID theophylline 400 mg tablet extended release 24 hr 400 mg PO DAILY potassium chloride 20 mEq tablet,ER particles/crystals 20 meq PO DAILY montelukast 10 mg Tablet 10 mg PO PM calcium carbonate-vitamin D3 [Oyster Shell + D3] 250 mg-3.125 mcg (125 unit) Tablet 2 tab PO DAILY Trelegy Ellipta 200-62.5-25 mcg blister with device 1 ea INHALATION DAILY hydrocodone-acetaminophen 5-325 mg Tablet 1 tab PO Q8HP PRN (Reason: Severe Pain (7-10)) 3 Days Qty: 9 0RF pantoprazole 40 mg tablet,delayed release (DR/EC) 40 mg PO DAILY 30 Days Qty: 30 0RF Referrals Follow up/Referrals: Moreinta Tang MD [Referring, Dermatology] - See instructions Deuce Sozua MD [Primary Care Provider, Medical] - See instructions Activity Restrictions/Add. Instructions Additional Instructions/Restrictions: You were evaluated in the emergency department today. At this time, your exam is not concerning for an acute infection, however as we discussed, if you develop significant redness and warmth or fevers greater than 100.4 ?F, please seek reevaluation right away, as you could be developing cellulitis. We are prescribing you a medication to take as needed for itching and a topical steroid to help reduce the itching and inflammation. Please supervisor opening and picking these prescriptions and take as prescribed. Do not take Benadryl with Vistaril (hydroxyzine). Follow-up close with a primary care provider over the next week for reassessment of your leg. Given that you do not have one, we have provided you with a list. I have also provided you with information for dermatology, Dr. Tang, if you continue to have significant skin irritation and issues. Return to the emergency department for new or worsening symptoms. You were incidentally found to have a lung nodule, for which I recommend follow-up on an outpatient basis as well. Clinical Impressions Clinical Impression: Left leg swelling, Pruritic rash, Lung nodule Instructions Patient Instructions: DI for Atopic Dermatitis-Adult, DI for Rash, DI for Itching Print Language Print Language: Telugu Discharge ED Provider: Ella Horton General Adult HPI <Faustino Guerrero MD - Last Filed: 09/13/24 06:51> General Chief complaint: Skin/Abscess/Foreign Body Stated complaint: itching, rash on L Leg Time Seen by Provider: 09/13/24 04:50 Mode of Arrival: Ambulatory Source of Information: Patient Description of Symptoms (Recalled from ER Triage Doc. by RN): patient c/o left lower leg rash and itching since yesterday morning. patient denies using anything new on her skin or going outside and anything coming into contact with her lower leg. patient states that she tried using oral benadryl and benadryl cream with no relief. History of Present Illness HPI narrative: 69-year-old female with history of pacemaker for atrial fibrillation, COPD, arthritis presents to the ER with rash on the left lower leg that is itching and mildly red. She also reports it is so itchy that it is painful. Patient denies using any new detergents, soaps, lotions, or coming into contact with anything new. She states she does not go outside except to go to the grocery store or to the doctor. She states she has not come into contact with anything that she knows of that should have caused this rash. She denies any other new changes in her life such as new medications or foods. Patient reports she took oral Benadryl and used Benadryl cream with no relief. She also states the left leg is more swollen than usual. She is not having any chest pain or difficulty breathing, no abdominal pain, nausea, vomiting, no numbness, tingling, or weakness, no fevers or chills, no other associated symptoms. Patient is unsure what blood thinner she takes, however review of medications demonstrates prescription for Eliquis. Related Data Home Medications ?Medication ?Instructions ?Recorded ?Confirmed allopurinol 100 mg tablet 100 mg PO DAILY gout 01/11/23 01/11/23 apixaban 5 mg tablet (Eliquis) 5 mg PO BID Blood Thinner/Afib 01/11/23 01/11/23 Held on 01/12/23. Instructions: Please hold until further discussion with victim advocate aspirin 81 mg chewable tablet 81 mg PO DAILY heart health 01/11/23 01/11/23 atorvastatin 10 mg tablet 10 mg PO HS Cholesterol 01/11/23 01/11/23 buspirone 15 mg tablet 15 mg PO BID Anxiety 01/11/23 01/11/23 calcium 250 mg (as 2 tab PO DAILY Supplement 01/11/23 01/11/23 carbonate)-vitamin D3 3.125 mcg (125 unit) tablet (Oyster Shell + D3) fluoxetine 40 mg capsule 40 mg PO DAILY Mood 01/11/23 01/11/23 fluticasone fur. 200 mcg-umeclid 1 ea inhalation DAILY Breathing 01/11/23 01/11/23 62.5 mcg-vilant 25 mcg Problems inhalat.powder (Trelegy Ellipta) furosemide 20 mg tablet (Lasix) 20 mg PO BID Fluid 01/11/23 01/11/23 gabapentin 300 mg capsule 300 mg PO BID PRN Pain 01/11/23 01/11/23 lisinopril 10 mg tablet 10 mg PO BID High Blood Pressure 01/11/23 01/11/23 metoprolol tartrate 50 mg tablet 50 mg PO BID High Blood Pressure 01/11/23 01/11/23 montelukast 10 mg tablet 10 mg PO PM Allergy Symptoms 01/11/23 01/11/23 nitrofurantoin 100 mg PO BID Infection 01/11/23 01/11/23 monohydrate/macrocrystals 100 mg capsule (Macrobid) potassium chloride 20 mEq 20 meq PO DAILY Supplement 01/11/23 01/11/23 tablet,extended release(part/cryst) theophylline 400 mg 400 mg PO DAILY Asthma 01/11/23 01/11/23 tablet,extended release 24 hr tizanidine 4 mg tablet 4 mg PO Q8HP PRN Muscle Spasm 01/11/23 01/11/23 Previous Rx's ?Medication ?Instructions ?Recorded hydrocodone 5 mg-acetaminophen 325 1 tab PO Q8HP PRN Severe Pain 01/12/23 mg tablet (7-10) 3 days #9 tabs pantoprazole 40 mg tablet,delayed 40 mg PO DAILY 30 days #30 tabs 01/12/23 release hydroxyzine pamoate 25 mg capsule 25 mg PO Q8H PRN itching #20 caps 09/13/24 triamcinolone acetonide 0.1 % 1 applic topical BID PRN itching 09/13/24 topical cream #80 grams Allergies Allergy/AdvReac Type Severity Reaction Status Date / Time Penicillins Allergy Verified 01/11/23 08:19 Sulfa (Sulfonamide Allergy Verified 01/11/23 08:19 Antibiotics) [facility] <Faustino Guerrero MD - Last Filed: 09/13/24 06:51> [facility] Disclaimer: The information contained in this section may have been updated after the patient was seen, as this information can be updated by other users. Medical History A-fib Allergic rhinitis Arthritis Gout High blood pressure High cholesterol History of asthma Neuropathy Surgical History History of hernia surgery S/P cholecystectomy S/P partial hysterectomy Social History (Updated 01/12/23 @ 07:36 by Mikie Dutta CRNA) Smoking Status: Former smoker alcohol intake: never substance use type: denies use current occupational status: unemployed Travel in the last 8 weeks?: None Have you lived/traveled outside US in past 30 days?: No Contact w/someone who lives/traveled outside US past 30 days?: No Exposure to someone with infectious disease in past 14 days?: No Do you have a fever (greater than 100.4 F or 38 C)?: No Have you tested positive for COVID-19?: No Exposed to someone with COVID-19 in past 14 days?: No Do you have a sore throat?: No Do you have a cough?: No Do you have any weakness?: No Do you have any diarrhea?: No Are you experiencing any unusual bleeding?: No Do you have any muscle aches/pain?: No Do you have any abdominal pain?: No Are you experiencing loss of taste or smell?: No Other Medical History Have you received the Flu Vaccine for this season: No Have you received the Pneumonia Vaccine: No <Faustino Guerrero MD - Last Filed: 09/13/24 06:51> ROS Obtained: Yes Systems reviewed as appropriate & no additional complaints except as documented Per HPI Physical Exam <Faustino Guerrero MD - Last Filed: 09/13/24 06:51> General General appearance: alert and in no apparent distress Head Head exam: atraumatic and normocephalic Eye Eye exam: Present PERRL and EOMI ENT ENT exam: Present mucous membranes moist Neck Neck exam: Present normal inspection and full ROM Chest Chest inspection: Present symmetric chest wall rise Respiratory Respiratory exam: Present normal lung sounds bilaterally; Absent respiratory distress, wheezes or stridor Cardiovascular Cardiovascular exam: Present regular rate and normal rhythm Abdominal Exam Abdominal exam: Present soft; Absent distention or tenderness Extremities Exam Extremities exam: Present full ROM, edema (+1 right lower extremity pitting edema, +2 left lower extremity pitting edema), calf tenderness (Tenderness throughout the calf and ambrocio of the left lower extremity without tender palpable cord) and other (Large patch of mildly erythematous skin that is not indurated, no fluctuance, the patch of erythema does contain numerous small wheals, no wound, blistering, or vesicles); Absent joint swelling Neurological Exam Neurological exam: Present alert and oriented X3; Absent motor sensory deficit Psychiatric Psychiatric exam: Present normal affect and normal mood Skin Skin exam: Present warm and dry Medical Decision Making <Faustino Guerrero MD - Last Filed: 09/13/24 06:51> Medical Records Medical records reviewed: Yes I reviewed the patient's medical records. Screening: Per USPSTF and CDC recommendations, given the prevalence of disease in our region, it is our hospital?s policy to screen for HIV and viral Hepatitis for all patients aged 18 and over and those with ongoing risk factors. Emiliano Inquiry Pt receiving controlled substance: No Vital Signs: 09/13/24 04:52 09/13/24 06:00 09/13/24 06:30 Temperature 97.8 F Temperature Source Oral Pulse Rate 82 87 Pulse Rate [Left] 96 H Respiratory Rate 22 16 16 Blood Pressure 165/76 H 154/71 H Blood Pressure [Right Arm] 199/87 H Blood Pressure Mean [Right Arm] 124 Blood Pressure Source [Right Arm] Automatic Cuff Blood Pressure Position [Right Arm] Sitting 02 Sat by Pulse Oximetry 92 L 96 97 Oxygen Delivery Method Room Air Lab Data Lab Results 09/13/24 05:05: WBC 9.7, RBC 4.26, Hgb 12.4, Hct 38.2, MCV 89.7, MCH 29.1, MCHC 32.5, RDW 14.8, Plt Count 258, MPV 11.0 H, Neut % (Auto) 52.7, Lymph % (Auto) 25.2, Titus % (Auto) 13.7 H, Eos % (Auto) 7.5, Baso % (Auto) 0.7, Neut # (Auto) 5.1, Lymph # (Auto) 2.4, Titus # (Auto) 1.3 H, Eos # (Auto) 0.7 H, Baso # (Auto) 0.1, D-Dimer 0.99 H, Sodium 141, Potassium 3.5, Chloride 104, Carbon Dioxide 29, Anion Gap 11.5, BUN 16, Creatinine 1.40 H, Estimated Creat Clear 61, Estimated GFR 37 L, Est GFR ( Amer) 45 L, Glucose 90, Calcium 9.6, Total Bilirubin 0.5, AST 16, ALT 14, Alkaline Phosphatase 114, Troponin I < 0.01, NT-Pro-B Natriuret Pep 291 H, Total Protein 6.8, Albumin 4.3, Globulin 2.5, Albumin/Globulin Ratio 1.7 09/13/24 05:05 09/13/24 05:05 Orders (Tests/Meds): ED MEDICATIONS Discontinued Medications Generic Name Dose Route Start Last Admin Trade Name Freq PRN Reason Stop Dose Admin Hydroxyzine Pamoate 50 mg 09/13/24 07:27 Hydroxyzine Pamoate 25mg Capsule PO 09/13/24 07:28 ONCE ONE Iopamidol 70 ml 09/13/24 06:51 09/13/24 06:53 Iopamidol-370 (76%);100ml Bottle IV 09/13/24 06:52 70 ml ONCE ONE Administration Sodium Chloride 50 ml 09/13/24 06:51 09/13/24 06:53 0.9 % Sodium Chloride 50 Ml Vial IV 09/13/24 06:52 50 ml ONCE ONE Administration Sodium Chloride 10 ml 09/13/24 06:51 09/13/24 06:53 Sodium Chloride 0.9% 10ml Syr (Rad Only) IV 09/13/24 06:52 10 ml ONCE ONE Administration ORDERS Category Date Time Status CT angio chest PE protocol Stat Cat Scan 09/13/24 06:20 Completed CXR --portable [XR chest portable] Stat Exams 09/13/24 05:03 Completed POCUS Point of Care (ER Only) Stat Exams 09/13/24 05:00 Completed BNP [NT Pro Brain Natriuretic Pep.] Stat Lab 09/13/24 05:05 Completed CBC w/Auto Diff [Complete Blood Count Auto Diff] Stat Lab 09/13/24 05:05 Completed CMP [Comprehensive Metabolic Panel] Stat Lab 09/13/24 05:05 Completed D-Dimer Stat Lab 09/13/24 05:05 Completed Trop I [Troponin I] Stat Lab 09/13/24 05:05 Completed Troponin I Q3H Lab 09/13/24 08:15 Ordered Troponin I Q3H Lab 09/13/24 11:15 Ordered CA venous doppler LE LT Stat Y 09/13/24 06:46 Completed ECG Request Stat Y 09/13/24 05:00 Ordered Medical Decision Narrative: In summary, this 69-year-old female with comorbidities described in the HPI which may not be at goal therapy presents to the emergency department today with left leg rash, itching, swelling. On initial evaluation patient is hemodynamically stable, afebrile, GCS 15, exam is notable for patch of erythema with wheals on the left lower extremity, left lower extremity also has 2+ pitting edema compared to 1+ on the right. Patient has tenderness of the ambrocio and calf though the erythematous patch is only on the posterior medial aspect of the most distal portion of the left calf. Neurovascularly intact. No evidence of injury. No skin sloughing or blistering. Differential diagnosis includes but is not limited to contact dermatitis, allergic reaction, I considered foreign body but I have no evidence of this clinically, also considered cellulitis but there is no induration, no fluctuance so I am not concerned for abscess, I did consider the possibility of DVT, fluid overload. Based on these concerns, I ordered cardiac workup, D-dimer, [id number] ultrasound. ECG personally interpreted demonstrates paced rhythm rate 95, right axis deviation, normal QTc, no STEMI. Patient has already taken Benadryl and used Benadryl topical prior to arrival. Cold compresses applied to the left lower leg [id number] ultrasound performed by me does not demonstrate DVT. See procedure note for details Labs personally reviewed demonstrate no leukocytosis or anemia, platelets normal, CMP with chronic kidney dysfunction, creatinine similar to previous, no AWILDA, troponin undetectably low less than 0.01, BNP 291, slightly improved compared to previous labs. Patient does have D-dimer elevated at 0.99, I have very low concern for PE, however with his D-dimer being elevated I do believe patient requires full formal DVT ultrasound, the ultrasound team will be available shortly so patient will remain in the ER until that time. While waiting, CTA PE was performed to exclude this since patient has had brief episodes of tachycardia though I believe this is likely related to her known A-fib. Chest x-ray personally interpreted does not demonstrate acute intrathoracic abnormality. Patient handed off to Dr. Horton in stable condition pending results of CTA PE and DVT ultrasound. <Ella Horton, DO - Last Filed: 09/13/24 07:36> Vital Signs: 09/13/24 04:52 09/13/24 06:00 09/13/24 06:30 Temperature 97.8 F Temperature Source Oral Pulse Rate 82 87 Pulse Rate [Left] 96 H Respiratory Rate 22 16 16 Blood Pressure 165/76 H 154/71 H Blood Pressure [Right Arm] 199/87 H Blood Pressure Mean [Right Arm] 124 Blood Pressure Source [Right Arm] Automatic Cuff Blood Pressure Position [Right Arm] Sitting 02 Sat by Pulse Oximetry 92 L 96 97 Oxygen Delivery Method Room Air Lab Data Lab Results 09/13/24 05:05: WBC 9.7, RBC 4.26, Hgb 12.4, Hct 38.2, MCV 89.7, MCH 29.1, MCHC 32.5, RDW 14.8, Plt Count 258, MPV 11.0 H, Neut % (Auto) 52.7, Lymph % (Auto) 25.2, Titus % (Auto) 13.7 H, Eos % (Auto) 7.5, Baso % (Auto) 0.7, Neut # (Auto) 5.1, Lymph # (Auto) 2.4, Titus # (Auto) 1.3 H, Eos # (Auto) 0.7 H, Baso # (Auto) 0.1, D-Dimer 0.99 H, Sodium 141, Potassium 3.5, Chloride 104, Carbon Dioxide 29, Anion Gap 11.5, BUN 16, Creatinine 1.40 H, Estimated Creat Clear 61, Estimated GFR 37 L, Est GFR ( Amer) 45 L, Glucose 90, Calcium 9.6, Total Bilirubin 0.5, AST 16, ALT 14, Alkaline Phosphatase 114, Troponin I < 0.01, NT-Pro-B Natriuret Pep 291 H, Total Protein 6.8, Albumin 4.3, Globulin 2.5, Albumin/Globulin Ratio 1.7 Orders (Tests/Meds): ED MEDICATIONS Discontinued Medications Generic Name Dose Route Start Last Admin Trade Name Freq PRN Reason Stop Dose Admin Hydroxyzine Pamoate 50 mg 09/13/24 07:27 Hydroxyzine Pamoate 25mg Capsule PO 09/13/24 07:28 ONCE ONE Iopamidol 70 ml 09/13/24 06:51 09/13/24 06:53 Iopamidol-370 (76%);100ml Bottle IV 09/13/24 06:52 70 ml ONCE ONE Administration Sodium Chloride 50 ml 09/13/24 06:51 09/13/24 06:53 0.9 % Sodium Chloride 50 Ml Vial IV 09/13/24 06:52 50 ml ONCE ONE Administration Sodium Chloride 10 ml 09/13/24 06:51 09/13/24 06:53 Sodium Chloride 0.9% 10ml Syr (Rad Only) IV 09/13/24 06:52 10 ml ONCE ONE Administration ORDERS Category Date Time Status CT angio chest PE protocol Stat Cat Scan 09/13/24 06:20 Completed CXR --portable [XR chest portable] Stat Exams 09/13/24 05:03 Completed POCUS Point of Care (ER Only) Stat Exams 09/13/24 05:00 Completed BNP [NT Pro Brain Natriuretic Pep.] Stat Lab 09/13/24 05:05 Completed CBC w/Auto Diff [Complete Blood Count Auto Diff] Stat Lab 09/13/24 05:05 Completed CMP [Comprehensive Metabolic Panel] Stat Lab 09/13/24 05:05 Completed D-Dimer Stat Lab 09/13/24 05:05 Completed Trop I [Troponin I] Stat Lab 09/13/24 05:05 Completed Troponin I Q3H Lab 09/13/24 08:15 Ordered Troponin I Q3H Lab 09/13/24 11:15 Ordered CA venous doppler LE LT Stat Y 09/13/24 06:46 Completed ECG Request Stat Y 09/13/24 05:00 Ordered Medical Decision Narrative: In summary, this 69-year-old female with comorbidities described in the HPI which may not be at goal therapy presents to the emergency department today with left leg rash, itching, swelling. On initial evaluation patient is hemodynamically stable, afebrile, GCS 15, exam is notable for patch of erythema with wheals on the left lower extremity, left lower extremity also has 2+ pitting edema compared to 1+ on the right. Patient has tenderness of the ambrocio and calf though the erythematous patch is only on the posterior medial aspect of the most distal portion of the left calf. Neurovascularly intact. No evidence of injury. No skin sloughing or blistering. Differential diagnosis includes but is not limited to contact dermatitis, allergic reaction, I considered foreign body but I have no evidence of this clinically, also considered cellulitis but there is no induration, no fluctuance so I am not concerned for abscess, I did consider the possibility of DVT, fluid overload. Based on these concerns, I ordered cardiac workup, D-dimer, [id number] ultrasound. ECG personally interpreted demonstrates paced rhythm rate 95, right axis deviation, normal QTc, no STEMI. Patient has already taken Benadryl and used Benadryl topical prior to arrival. Cold compresses applied to the left lower leg [id number] ultrasound performed by me does not demonstrate DVT. See procedure note for details Labs personally reviewed demonstrate no leukocytosis or anemia, platelets normal, CMP with chronic kidney dysfunction, creatinine similar to previous, no AWILDA, troponin undetectably low less than 0.01, BNP 291, slightly improved compared to previous labs. Patient does have D-dimer elevated at 0.99, I have very low concern for PE, however with his D-dimer being elevated I do believe patient requires full formal DVT ultrasound, the ultrasound team will be available shortly so patient will remain in the ER until that time. While waiting, CTA PE was performed to exclude this since patient has had brief episodes of tachycardia though I believe this is likely related to her known A-fib. Chest x-ray personally interpreted does not demonstrate acute intrathoracic abnormality. Patient handed off to Dr. Horton in stable condition pending results of CTA PE and DVT ultrasound. Clifford, DO: I assumed care of the patient at 7 AM at time of departure previous provider. Labs obtained are reassuring with no significant leukocytosis or neutrophilic predominance. Kidney function is around her baseline. D-dimer was mildly elevated, so CTA PE protocol and DVT ultrasound were obtained. I independently interpreted these prior to radiology read and noted no DVT, no PE. She does have an incidental lung nodule, which I notified her of and advised that she follow-up outpatient. On exam, she has pitting edema of the left lower extremity with no significant redness that would be concerning for cellulitis. She does have periodic maculopapular rash, especially at the medial aspect of the left lower extremity. This could be venous stasis/venous insufficiency versus contact dermatitis. It is intensely pruritic, so we will prescribe her Vistaril as well as triamcinolone for symptomatic improvement. At this time, I do not feel that antibiotics are indicated based on exam or workup. I advised that she follow-up very closely for monitoring to see if symptoms improved with primary care. She does not have a primary care provider, so we did provide her with a list. I also gave her information for dermatology so she can follow-up if she continues to have issues. She was discharged with very strict return precautions should her symptoms worsen Procedures <Faustino Guerrero MD - Last Filed: 09/13/24 06:51> Miscellaneous Procedure Procedure Performed: Limited DVT ultrasound Indication: Limited compression ultrasonography of the left lower extremity was performed to evaluate for non-compressibility of the deep veins in the patient. The ultrasound was performed with the following indications, as noted in the H&P: Left leg swelling, redness, pain Identified structures: Left [common femoral vein, femoral vein, popliteal vein were examined.] Findings: Lower Extremity: Left CFV: Good compressibility Left FV good compressibility Left Popliteal vein: Good compressibility Impression: Normal, no DVT appreciated Images were saved to permanent archive The study was technically adequate CPT: 89699-78-AV [id number] (complete bilateral study) This study was performed by me, and I personally interpreted all images/videos. Based on my clinical judgement, these images were adequate and did necessitate further imaging for more complete study. Critical Care <Faustino Guerrero MD - Last Filed: 09/13/24 06:51> Critical Care Time Critical Care Time: No
--- NOTE | 2024-09-13 06:20 | CT_ITS ---
FINAL REPORT TECHNIQUE: Axial imaging of the chest is obtained after the administration of contrast. 3-D MIP reformatted images were also obtained and reviewed per PE protocol. CLINICAL HISTORY: LLE swelling, dimer elevated, brief tachy COMPARISON: None FINDINGS: The pulmonary arteries are well filled. There is no evidence of pulmonary embolus. There is no aortic dissection. Heart size is normal. There is no axillary lymphadenopathy. Mildly prominent AP window lymph node measures 15 mm. Right hilar lymphadenopathy measures 22 mm. No left hilar lymphadenopathy. Evidence of prior granulomatous disease. There is a noncalcified 8 mm left upper lobe nodule on series 5 image 37. The lungs are otherwise clear. There is no pleural or pericardial effusion. Limited evaluation of the upper abdomen demonstrates an unusual linear hypodensity in the liver of uncertain etiology. No acute osseous abnormality. IMPRESSION: No evidence of pulmonary embolism or aortic dissection. 8 mm left upper lobe noncalcified pulmonary nodule. Consider 3-month follow-up chest CT or PET/CT. Reviewed, Interpreted and Dictated by Corazon Damian MD Transcribed by Felicia Jacobs Authenticated and [facility]
[2024-09-13 06:30] VITALS: BP 154/71; PULSE 87; RESP 16; O2SAT 97
--- NOTE | 2024-09-13 06:46 | CA_ITS ---
FINAL REPORT CLINICAL HISTORY: left leg swelling with rash FINDINGS: DUPLEX VENOUS SONOGRAPHY OF THE LEFT LOWER EXTREMITY Multiple transverse and longitudinal scans were performed of the femoropopliteal deep venous system, with augmentation and compression maneuvers. FINDINGS: Normal phasic flow was noted in the visualized deep venous system. No intraluminal increased echogenicity is noted to suggest thrombus. There is normal compression and augmentation of the venous structures. No abnormal venous collaterals are seen. IMPRESSION: No evidence of deep venous thrombosis of the left lower extremity. Reviewed, Interpreted and Dictated by Corazon Damian MD Transcribed by Felicia Jacobs Authenticated and [facility]
[2024-09-13] MEDS: 0.9 % SODIUM CHLORIDE 50 ML VIAL IV (06:53)
[2024-09-13] MEDS: SODIUM CHLORIDE 0.9% 10ML SYR (RAD ONLY) 10 ML IV (06:53)
[2024-09-13] MEDS: IOPAMIDOL-370 (76%);100ML BOTTLE 70 ML IV (06:53)
[2024-09-13] MEDS: hydrOXYzine pamoate 25MG CAPSULE 50 MG PO (07:41)
[2024-09-13 07:42] VITALS: BP 176/90; PULSE 81; RESP 16; TEMP 36.7; O2SAT 95
== END 2024-09-13 07:40 | disposition home or self-care (01) ==
PROVIDERS: Emergency Medicine; Emergency Provider Emergency Medicine; PCP Internal Medicine
DX: R22.42 Localized swelling, mass and lump, left lower limb (principal); L29.9 Pruritus, unspecified; Z87.891 Personal history of nicotine dependence
CPT/HCPCS: 71045; 71275; 80053; 83880; 84484; 85025; 85378; 93005; 93971; 99285; Q9967

== ENCOUNTER 2025-01-25 10:32 | Observation (INO) | payer MEDICARE, MEDICAID, SELFPAY ==
--- OUTSIDE RECORDS SUMMARY | 2022-03-19 14:00 | XMS_ITS | Encounter Summary ---
Author Organization [place] [address] Care Team Providers Care Technical Cable Jointer Name Role Phone Jose Maria Souza MD Primary Care Provider Reason for Visit * Oncology Medication Prior Authorization (Routine) - Closed Specialty Diagnoses / Procedures Referred By Contac t Referred To Contact Oncology Diagnoses Age-related osteoporosis without current pathological fracture Procedures SD DENOSUMAB INJECTION Jose Maria Souza MD [address] [place] [address] Phone: tel: fax: [address] [address] Phone: tel: fax: Referral ID Status Reason Start Date Expiration Date Visits Re quested Visits Authorized [id number] Closed 09/03/2021 09/03/2022 1 99 Encounter Details Date Type Department Care Team (Late st Contact Info) Description 03/19/2022 1:00 PM EST Hospital Encounter [address] [address] Excused Social History Tobacco Use Types Packs/Day Years Used Date Smoking Tobacco: Former Cigarettes 1 54 0 04/11/1965 - 11/16/2014 Smokeless Tobacco: Never Alcohol Use Standard Drinks/Week Comments Not Currently 0 (1 standard drink = 0.6 oz pur e alcohol) [facility] Utilities Answer Date Recorded In the past 12 months has th e electric, gas, oil, or water company threatened to shut off services in your home? No 10/02/2024 Overall Financial Resource Strain (CARDIA) Answe r Date Recorded How hard is it for you to pa y for the very basics like food, housing, medical care, and heating? Not hard at all 10/02/2024 PHQ-2 Answer Date Recorded PHQ-2 Total Score 0 01/24/2024 [facility] [place] [facility] - Occupational Stress Questionnaire Answer Date Recorded Do you feel stress - tense, restless, nervous, or anxious, or unable to sleep at night because your mind is troubled all the time - these days? Only a little 10/02/2024 Exercise Vital Sign Answer Date Recorde d On average, how many days pe r week do you engage in moderate to strenuous exercise (like a brisk walk)? 2 days 07/12/2023 On average, how many minutes do you engage in exercise at this level? 30 min 07/12/2023 Hunger Vital Sign Answer Date Recorded Within the past 12 months, y ou worried that your food would run out before you got the money to buy more. Never true 10/03/19 25 Within the past 12 months, t he food you bought just didn't last and you didn't have money to get more. Never true 10/02/2024 PRAPARE - Transportation Answer Date Re corded In the past 12 months, has l ack of transportation kept you from medical appointments or from getting medications? No 09/10 In the past 12 months, has l ack of transportation kept you from meetings, work, or from getting things needed for daily living? No 10/02/2024 Housing Stability Vital Sign Answer Sunil e Recorded In the last 12 months, was t here a time when you were not able to pay the mortgage or rent on time? No 10/02/2024 Number of Times Moved in the Last Year Not on fi le 10/02/2024 At any time in the past 12 m [facility], were you homeless or living in a [facility] (including now)? No 10/02/2024 [facility] IP Transportation Answer D ate Recorded In the past 12 months, has l ack of reliable transportation kept you from medical appointments, meetings, work or from getting things needed for daily living? 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 No / Unsure 11/19/2022 12:06 PM EDT documented as of this encounter Functional Status * Cognitive and Functional Status Question Answer Date of Assessment Author Is the person deaf or does h e/she have serious difficulty hearing? No 07/12/2023 10:29 AM EDT Rafaela Mock RN Is the person blind or does he/she have serious difficulty seeing even when wearing glasses? No 07/12/2023 10:29 AM EDT Rafaela Aguilar RN Does this person have seriou s difficulty walking or climbing stairs? No 07/12/2023 10:29 AM GERARDOT Rafaela Aguilar RN Does this person have diffic ulty dressing or bathing? Yes 07/12/2023 10:29 AM GERARDOT Rafaela Aguilar RN * Alcohol Screening Score Answer Date of Assessment Author 0 01/27/2023 4:00 AM Nasra Diane RN * Drug Screening Score Answer Date of Assessment Author 0 01/27/2023 4:00 AM GERARDOT Nasra Rivera RN * Question Answer Date of Assessment Author How often do you have a drin k containing alcohol? 0 01/27/2023 4:00 AM Nasra Diane R N How many drinks containing a lcohol do you have on a typical day when you are drinking? 0 01/27/2023 4:00 AM Nasra Diane R N How often do you have six or more drinks on one occasion? 0 01/27/2023 4:00 AM Norma Diane RN AUDIT-C to Determine Rows 4-10 0 01/27/2023 4:00 AM EDT Nasra Rivera, PHONG * Is the person deaf or does he/she have serious difficulty hearing? Answer Date of Assessment Author No 11/30/2021 12:57 PM EDT Arleth De La Torre RMA * Is the person blind or does he/she have serious difficulty seeing even when wearing glasses? Answer Date of Assessment Author No 11/30/2021 12:57 PM EDT Arleth De La Torre RMA * Does this person have serious difficulty walking or climbing stairs? Answer Date of Assessment Author No 11/30/2021 12:57 PM EDT Arleth De La Torre RMA * Does this person have difficulty dressing or bathing? Answer Date of Assessment Author No 11/30/2021 12:57 PM EDT Arleth De La Torre RMA * Because of a physical, mental or emotional condition, does this person have difficulty doing errands alone such as visiting a doctor's office or shopping? Answer Date of Assessment Author No 11/30/2021 12:57 PM EDT Arleth De La Torre RMA * PHQ-9 Total Score Answer Date of Assessment Author 0 01/24/2024 12:51 PM EDT Arleth De La Torre RMA * Question Answer Date of Assessment Author Little interest or pleasure in doing things 0 01/24/2024 12:51 PM EDT John De La Torre RMA Feeling down, depressed, or hopeless 0 01/24/2024 12:51 PM EDT John De La Torre RMA PHQ-2 Total Score 0 01/24/2024 12:51 PM EDT Arleth De La Torre RMA * Suicide Severity Rating Answer Date of Assessment Author No Risk 11/12/2024 1:45 AM EDT Jl Cary RN * [place] Suicide Severity Rating Scale (Q shift for moderate and high) Question Answer Date of Assessment Author 1. In the past month, have y ou wished you were or wished you could go to sleep and not wake up? 0 11/12/2024 1:45 AM EDT Emile Ryan RN 2. In the past month, have y ou actually had any thoughts of killing yourself? (If no, skip to question 6) 0 11/12/2024 1:45 AM EDT Emile Cary RN 6. Have you ever done anythi ng, started to do anything, or prepared to do anything to end your life? 0 11/12/2024 1:45 AM EDT Emile Durbin RN documented as of this encounter Mental Status * Cognitive and Functional Status Question Answer Entry Date Author Because of a physical, menta l or emotional condition, does this person have difficulty doing errands alone such as visiting a doctor's office or shopping? Yes 07/12/2023 10:29 AM EDT Rafaela Aguilar RN Because of a physical, menta l or emotional condition, does this person have serious difficulty concentrating, remembering or making decisions? No 07/12/2023 10:29 AM EDT Rafaela Aguilar RN * Because of a physical, mental or emotional condition, does this person have serious difficulty concentrating, remembering or making decisions? Answer Entry Date Author No 11/30/2021 12:57 PM EDT Arleth De La Torre RMA documented in this encounter Plan of Treatment Upcoming Encounters Date Type Department Care Team (Late st Contact Info) Description 01/25/2025 12:15 PM EDT Office Visit [facility] [address] [place] [address] Melecio Dubois MD [address] [place] [address] 02/13/2025 9:40 AM EST Office Visit [facility] [place] [address] [place] [address] Michael Delgado MD [address] [place] [address] [place] [address] 07/09/2025 2:30 PM EDT Office Visit [facility] [address] [address] Michael Delgado MD [address] [place] [address] [place] [address] 11/28/2025 1:30 PM EDT Office Visit [facility] [address] [facility] [address] [place] [address] 11/28/2025 2:00 PM EDT Office Visit [facility] [address] [place] [address] [address] [place] [address] Ramon Mandel MD [address] [place] [address] [place] [address] documented as of this encounter Goals Goal Patient Goal Type Associated Problems Recent Progress Patient-Stated? Author Blood Pressure < 140/90 Blood Pressure 122/76(2024 1:15 PM EDT) Arleth Ricardo RMA Maintain a healthy diet, exercise regularly and maintain an ideal body weight General Janette Virgen CCMA Stay Tobacco Free Lifestyle On track( 021 8:33 AM EST) Janette Virgen CCMA documented as of this encounter Visit Diagnoses Not on filedocumented in this encounter Additional Health Concerns Infection Onset Date Last Indicated Resolved Time R/O COVID-19 12/19/2022 12/19/2022 12/19/2022 5:58 AM EDT R/O COVID-19 01/27/2023 01/27/2023 01/27/2023 2:14 AM EDT R/O C-Diff 01/27/2023 01/28/2023 01/28/2023 4:33 PM EDT R/O C-Diff 02/16/2023 02/16/2023 02/16/2023 7:05 PM EST R/O COVID-19 06/21/2024 06/21/2024 06/21/2024 10:1 8 AM EDT COVID-19 06/21/2024 06/21/2024 07/11/2024 10:1 3 PM EDT Assessment Noted Time A fall risk assessment has been complete d for the patient 08/31/2021 9:14 AM EDT documented as of this encounter Care Teams Technical Cable Jointer Relationship Specialty Start Date End Date Jose Maria Souza MD [address] [place] [address] PCP - General Family Medicine 07/31/18 documented as of this encounter
--- OUTSIDE RECORDS SUMMARY | 2024-11-27 13:30 | XMS_ITS | Encounter Summary ---
Author [place] [address] Care Team Providers Care Sword Swallower Name Role Phone Jose Maria Souza MD Primary Care Provider Reason for Visit * Reason Comments Pacemaker Check Here for yearly MDT BiV PPM implanted on 07/11/2023 check and MD visit Encounter Details Date Type Department Care Team (Latest Contact Info) Description 11/27/2024 1:30 PM EDT Office Visit [facility] [address] [facility] [address] [place] [address] Kamaljit Lajesus [place] Biventricular cardiac pacemaker in situ (Primary Dx); Adjustment and management of cardiac pacemaker; CHB (complete heart block) (HCC); 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 Answer Date of Assessment Author No 07/12/2023 10:29 AM EDRafaela Oliver RN * Is the person blind or does he/she have serious difficulty seeing even when wearing glasses? Answer Date of Assessment Author No 07/12/2023 10:29 AM Rafaela Zelaya RN * Does this person have serious difficulty walking or climbing stairs? Answer Date of Assessment Author No 07/12/2023 10:29 AM Rafaela Zelaya RN * Does this person have difficulty dressing or bathing? Answer Date of Assessment Author Yes 07/12/2023 10:29 AM Rafaela Zelaya RN * Because of a physical, mental or emotional condition, does this person have difficulty doing errands alone such as visiting a doctor's office or shopping? Answer Date of Assessment Author Yes 07/12/2023 10:29 AM Rafaela Zelaya RN documented as of this encounter Mental Status * Because of a physical, mental or emotional condition, does this person have serious difficulty concentrating, remembering or making decisions? 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 Mandel Last in Clinic Check: 11/12/24 (hospital) Device is not on advisory Presenting: /BVP 98 wth runs of AT 102-126 bpm Underlying Rhythm: SB 50s/CHB--no escape Patient is pacemaker dependent Pacing Mode / Rate: DDDR Lower Rate: 70 bpm UTR / USR: 130 / 130 Battery: 8.7 years Battery Voltage: 3.01 V Atrium Paced: 18.8 % Ventricle Paced: 99.5 % EFF: 99.5 % VSR: 0.1 % SIC: 0 PVC: 6.8/h AF: 21 % V rates in AF: controlled AF Alert: 24hr RA Lead: [id number] Lead Implant Date: 07/11/23 Sensin.6 mV Pacing Threshold: 1.5V @ 0.4ms Impedance: 513 Ohm RV Lead: [id number] Lead Implant Date: 07/11/23 Sensing: (CHB) Pacing Threshold: 0.75V @ 0.4ms Impedance: 684 Ohm LV Lead: [id number] LV Vector: LV2to LV3 Lead Implant Date: 07/11/23 Pacing Threshold: 1V @ 1ms Impedance: 893 Ohm Ejection Fraction History 12/20/2022 02/09/2021 9:07 AM 3:23 PM Ejection Fraction >70 75 HF Monitoring: No On Anticoagulant: Yes (On Eliquis) Dx: Complete Heart Block; Atrial Fibrillation; Diastolic Heart Failure Next Remote Due: 01/18/25 Phone Number with Vector: [phone] Impression: 12 AT/AF monitored events most recent was on 11-26-24, longest lased >24hr, VR contolled. Histogram good, optivol wnl and trends stable AF alert turned on 24hr. Normal device check documented in this encounter Plan of Treatment Upcoming Encounters Date Type Department Care Team (Late st Contact Info) Description 01/25/2025 12:15 PM EDT Office Visit [facility] [address] [place] [address] Melecio Dubois MD [address] [id number] 02/13/2025 9:40 AM EST Office Visit [facility] [address] [id number] Michael Delgado MD [address] [place] [address] [place], [place] [id number] 07/09/2025 2:30 PM EDT Office Visit [facility] [address] [address] Michael Delgado MD [address] [place] [address] [place], [place] [id number] 11/28/2025 1:30 PM EDT Office Visit [facility] [address] [place] [address] [address] [place] [address] 11/28/2025 2:00 PM EDT Office Visit [facility] [address] [place] [address] [address] [place] [address] Ramon Mandel MD [address] [place] [address] [place], [place] [id number] Scheduled Orders Name Type Priority Associated Diagnoses Orde r Schedule AL PROGRAM EVAL IMPLANTABLE IN PRSN MULTI LD PACER AL Charge Routine Biventricular cardiac pacemaker in situ Adjustment and management of cardiac pacemaker CHB (complete heart block) (HCC) 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 Author Blood Pressure < 140/90 Blood Pressure 122/76(2024 1:15 PM EDT) Arleth Ricardo RMA Maintain a healthy diet, exercise regularly and maintain an ideal body weight General No Janette Motta CCMA Stay Tobacco Free Lifestyle On track( 021 8:33 AM EST) Janette Virgen CCMA documented as of this encounter Procedures Procedure Name Priority Date/Time Associated Diagnosis Comments PACEART REPORT Routine 11/27/2024 5:31 PM EDT documented in this encounter Results * PACEART REPORT (11/27/2024 5:31 PM EDT) 11/27/2024 5:31 PM EDT Narrative [facility] - 11/27/2024 4:00 PM EDT Here for a yearly check and MD visit. See MD note and attached pdf for details. 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
--- OUTSIDE RECORDS SUMMARY | 2024-11-27 14:00 | XMS_ITS | Encounter Summary ---
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 Meds per pt report. 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 No 10/02/2024 Overall Financial Resource Strain (CARDIA) Answe r Date Recorded How hard is it for you to pa y for the very basics like food, housing, medical care, and heating? Not hard at all 10/02/2024 PHQ-2 Answer Date Recorded PHQ-2 Total Score 0 01/24/2024 [facility] - Occupational Stress [...] any time in the past 12 m [facility], were you homeless or living in a fdc (including now)? 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 female. Chief Complaint Patient presents with Follow-up Pt is here for 1 yr f/u MDT BIV PPM. Meds per pt report. Follow-up Chronicity: PAF. Pertinent negatives include no arthralgias, coughing, diaphoresis, fatigue, headaches, myalgias, rash, urinary symptoms, vertigo or weakness. 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 18 g 2 albuterol (PROVENTIL) 2.5 mg /3 mL (0.083 %) Inhl Solution for Nebulization TAKE 3 ML BY NEBULIZATION EVERY 4 HOURS NEEDED FOR WHEEZING. 180 mL 11 allopurinoL (ZYLOPRIM) 100 mg Oral Tablet TAKE 1 TABLET BY MOUTH DAILY. 90 Tablet 3 apixaban (ELIQUIS) 5 mg Oral Tablet Take 1 Tablet by mouth 2 times daily. 60 Tablet 3 atorvastatin (LIPITOR) 10 mg Oral Tablet TAKE 1 TABLET BY MOUTH NIGHTLY. 90 Tablet 2 Blood Sugar Diagnostic [facility] Strip 1 Strip by [facility].(Non-Drug; Combo Route) route 2 times daily as needed. 100 Each 5 Blood-Glucose Meter [facility] Kit Use to check blood glucose two times daily as needed 1 Kit 0 busPIRone (BUSPAR) 15 mg Oral Tablet TAKE 1 TABLET BY MOUTH 2 TIMES DAILY NEEDED. 60 Tablet 2 cetirizine-psuedoephedrine (ZYRTEC-D) 5-120 mg Oral Tablet Sustained Release 12 hr Take 1 Tablet bymouth every 12 hours. 60 Tablet 2 clobetasoL (TEMOVATE) 0.05 % Top Cream Apply topically 2 times daily. 30 g 2 cyclobenzaprine (FLEXERIL) 5 mg Oral Tablet Take 1 Tablet by mouth nightly. 30 Tablet 2 cyclobenzaprine (FLEXERIL) 5 mg Oral Tablet TAKE 1 TABLET BY MOUTH NIGHTLY. 30 Tablet 0 EPINEPHrine (EPIPEN) 0.3 mg/0.3 mL Inj Auto-Injector Inject 0.3 mL as directed as needed for Anaphylaxis. Inject the contents of one pen (0.3 mL) into the muscle in the middle of the outer thigh as directed for anaphylaxis.Call 911 after administering. May repeat dose in 5-15 minutes if symptoms persist or worsen. 2 Each 0 FLUoxetine (PROZAC) 20 mg Oral Capsule TAKE 3 CAPSULES BY MOUTH DAILY. 90 Capsule 0 fUROsemide (LASIX) 20 mg Oral Tablet Take 1 Tablet by mouth 2 times daily. 60 Tablet 1 gabapentin (NEURONTIN) 300 mg Oral Capsule TAKE 1 CAPSULE BY MOUTH 2 TIMES DAILY. 60 Capsule 2 hydrOXYzine (VISTARIL) 25 mg Oral Capsule lisinopriL (PRINIVIL;ZESTRIL) 10 mg Oral Tablet TAKE 1 TABLET BY MOUTH 2 TIMES DAILY. 200 Tablet 2 meloxicam (MOBIC) 15 mg Oral Tablet Take 1 Tablet by mouth daily. 30 Tablet 2 metoprolol (LOPRESSOR) 50 mg Oral Tablet TAKE 1 TABLET BY MOUTH 2 TIMES DAILY. 180 Tablet 1 montelukast (SINGULAIR) 10 mg Oral Tablet TAKE 1 TABLET BY MOUTH NIGHTLY 30 Tablet 0 omeprazole (PRILOSEC) 20 mg Oral Capsule, Delayed Release(E.C.) TAKE 1 CAPSULE BY MOUTH ONCE DAILY 90 Capsule 2 ondansetron (ZOFRAN-ODT) 4 mg Oral Tablet, Rapid Dissolve Take 1 Tablet by mouth every 8 hours as needed for Nausea. 15 Tablet 0 OYSTER SHELL CALCIUM-VIT D3 500 mg-5 mcg (200 unit) Oral Tablet TAKE 2 TABLETS BY MOUTH ONCE DAILY 60 Tablet 11 potassium chloride (KLOR-CON M) 20 mEq Oral Tab Sust.Rel. Particle/Crystal TAKE 1 TABLET BY MOUTH DAILY. 90 Tablet 1 predniSONE (DELTASONE) 20 mg Oral Tablet Take 2 tablets daily for 4 days, then 1 tablet for 4 days 12 Tablet 0 theophylline CR, 24 hour, (UNIPHYL) 400 mg Oral Tablet Sustained Release 24 hr Take 1 Tablet by mouth daily. 30 Tablet 3 tiZANidine (ZANAFLEX) 4 mg Oral Tablet Take 1 Tablet by mouth 3 times daily. 30 Tablet 2 traZODone (DESYREL) 50 mg Oral Tablet Take 1 Tablet by mouth nightly. 30 Tablet 2 TRELEGY ELLIPTA 100-62.5-25 mcg Inhl Disk with Device INHALE 1 PUFF INTO THE LUNGS DAILY. 60 Each 2 triamcinolone (KENALOG) 0.1 % Top Cream No current facility-administered medications for this visit. Past Medical History: Diagnosis Date Class 1 obesity in adult Complete AV block due to AV kalyn ablation ([facility]) 07/11/[address] AV node modification [address] Dr. 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 ([facility]) 06/23/2023 PAF (paroxysmal atrial fibrillation) ([facility]) 01/27/2023 Acute kidney injury superimposed on CKD 01/27/2023 Stage 3 chronic kidney disease ([facility]) 01/27/2023 Medically noncompliant 12/19/2022 COPD (chronic obstructive pulmonary disease) ([facility]) 02/07/2022 Hypertension 02/07/2022 Moderate asthma 02/07/2022 Age-related osteoporosis without current pathological fracture 09/03/2021 Ventral hernia without obstruction or gangrene 04/30/2021 Anticoagulated 02/09/2021 Chronic respiratory failure with hypoxia (HCC) 09/21/2020 Lung nodule Hyponatremia 01/02/2020 SBO (small bowel obstruction) (HCC) 10/19/2019 Hypokalemia 08/20/2019 Generalized osteoarthritis of multiple sites 03/23/2019 Mastoiditis of right side 03/23/2019 Hyperlipidemia with target LDL less than 100 02/28/2019 Chronic midline low back pain with bilateral sciatica 09/06/2018 ESCOBAR (obstructive sleep apnea) 08/21/2018 GERD (gastroesophageal reflux disease) 08/03/2018 Insomnia 09/30/2017 Past Surgical History: Procedure Laterality Date ABLATION OF DYSRHYTHMIC FOCUS 07/11/2023 AV Node ablation, Dr. Mandel CHOLECYSTECTOMY, LAPAROSCOPIC 01/03/2011 LAPAROSCOPIC CHOLECYSTECTOMY POSSIBLE OPEN - SCIP performed by ESTELA BLANCO V at [facility] OR HERNIA REPAIR HYSTERECTOMY, SUPRACERVICAL supracervical PACEMAKER PLACEMENT 07/11/2023 MDT Bi-V PPM, Dr. Mandel VENTRAL HERNIA REPAIR N/A 07/01/2021 Robotic assisted incisional hernia repair, robotic lysis of adhesions with mesh ; Surgeon: Jv Cintron MD; Location: [facility] OR; Service: Robotics Family History Problem Relation Age of Onset Cancer Sister Heart Disease Sister Diabetes Sister Heart Disease Sister Coronary Art Dis Mother Heart Failure Mother Heart Disease Mother Heart Attack Mother Heart Failure Father Heart Disease Father Coronary Art Dis Father Heart Disease Brother Diabetes Brother Heart Disease Maternal Grandmother Lung Cancer Maternal Grandmother Heart Disease Maternal Grandfather No Known Problems Paternal Grandmother No Known Problems Paternal Grandfather Anesth Problems Neg Hx Social History Tobacco Use Smoking status: Former Current packs/day: 0.00 Average packs/day: 1 pack/day for 54.0 years (54.0 ttl pk-yrs) Types: Cigarettes Start date: 04/11/1965 Quit date: 11/16/2014 Years since quittin.0 Smokeless tobacco: Never Substance Use Topics Alcohol use: Not Currently Current Outpatient Medications Medication Sig Dispense Refill albuterol (PROVENTIL HFA;VENTOLIN HFA) 90 mcg/actuation Inhl HFA Aerosol Inhaler Inhale 2 Puffs into the lungs every 4 hours as needed for Wheezing. 18 g 2 albuterol (PROVENTIL) 2.5 mg /3 mL (0.083 %) Inhl Solution for Nebulization TAKE 3 ML BY NEBULIZATION EVERY 4 HOURS NEEDED FOR WHEEZING. 180 mL 11 allopurinoL (ZYLOPRIM) 100 mg Oral Tablet TAKE 1 TABLET BY MOUTH DAILY. 90 Tablet 3 apixaban (ELIQUIS) 5 mg Oral Tablet Take 1 Tablet by mouth 2 times daily. 60 Tablet 3 atorvastatin (LIPITOR) 10 mg Oral Tablet TAKE 1 TABLET BY MOUTH NIGHTLY. 90 Tablet 2 Blood Sugar Diagnostic Misc Strip 1 Strip by [facility].(Non-Drug; Combo Route) route 2 times daily as needed. 100 Each 5 Blood-Glucose Meter [facility] Kit Use to check blood glucose two times daily as needed 1 Kit 0 busPIRone (BUSPAR) 15 mg Oral Tablet TAKE 1 TABLET BY MOUTH 2 TIMES DAILY NEEDED. 60 Tablet 2 cetirizine-psuedoephedrine (ZYRTEC-D) 5-120 mg Oral Tablet Sustained Release 12 hr Take 1 Tablet bymouth every 12 hours. 60 Tablet 2 clobetasoL (TEMOVATE) 0.05 % Top Cream Apply topically 2 times daily. 30 g 2 cyclobenzaprine (FLEXERIL) 5 mg Oral Tablet Take 1 Tablet by mouth nightly. 30 Tablet 2 cyclobenzaprine (FLEXERIL) 5 mg Oral Tablet TAKE 1 TABLET BY MOUTH NIGHTLY. 30 Tablet 0 EPINEPHrine (EPIPEN) 0.3 mg/0.3 mL Inj Auto-Injector Inject 0.3 mL as directed as needed for Anaphylaxis. Inject the contents of one pen (0.3 mL) into the muscle in the middle of the outer thigh as directed for anaphylaxis.Call 911 after administering. May repeat dose in 5-15 minutes if symptoms persist or worsen. 2 Each 0 FLUoxetine (PROZAC) 20 mg Oral Capsule TAKE 3 CAPSULES BY MOUTH DAILY. 90 Capsule 0 fUROsemide (LASIX) 20 mg Oral Tablet Take 1 Tablet by mouth 2 times daily. 60 Tablet 1 gabapentin (NEURONTIN) 300 mg Oral Capsule TAKE 1 CAPSULE BY MOUTH 2 TIMES DAILY. 60 Capsule 2 hydrOXYzine (VISTARIL) 25 mg Oral Capsule lisinopriL (PRINIVIL;ZESTRIL) 10 mg Oral Tablet TAKE 1 TABLET BY MOUTH 2 TIMES DAILY. 200 Tablet 2 meloxicam (MOBIC) 15 mg Oral Tablet Take 1 Tablet by mouth daily. 30 Tablet 2 metoprolol (LOPRESSOR) 50 mg Oral Tablet TAKE 1 TABLET BY MOUTH 2 TIMES DAILY. 180 Tablet 1 montelukast (SINGULAIR) 10 mg Oral Tablet TAKE 1 TABLET BY MOUTH NIGHTLY 30 Tablet 0 omeprazole (PRILOSEC) 20 mg Oral Capsule, Delayed Release(E.C.) TAKE 1 CAPSULE BY MOUTH ONCE DAILY 90 Capsule 2 ondansetron (ZOFRAN-ODT) 4 mg Oral Tablet, Rapid Dissolve Take 1 Tablet by mouth every 8 hours as needed for Nausea. 15 Tablet 0 OYSTER SHELL CALCIUM-VIT D3 500 mg-5 mcg (200 unit) Oral Tablet TAKE 2 TABLETS BY MOUTH ONCE DAILY 60 Tablet 11 potassium chloride (KLOR-CON M) 20 mEq Oral Tab Sust.Rel. Particle/Crystal TAKE 1 TABLET BY MOUTH DAILY. 90 Tablet 1 predniSONE (DELTASONE) 20 mg Oral Tablet Take 2 tablets daily for 4 days, then 1 tablet for 4 days 12 Tablet 0 theophylline CR, 24 hour, (UNIPHYL) 400 mg Oral Tablet Sustained Release 24 hr Take 1 Tablet by mouth daily. 30 Tablet 3 tiZANidine (ZANAFLEX) 4 mg Oral Tablet Take 1 Tablet by mouth 3 times daily. 30 Tablet 2 traZODone (DESYREL) 50 mg Oral Tablet Take 1 Tablet by mouth nightly. 30 Tablet 2 TRELEGY ELLIPTA 100-62.5-25 mcg Inhl Disk with Device INHALE 1 PUFF INTO THE LUNGS DAILY. 60 Each 2 triamcinolone (KENALOG) 0.1 % Top Cream No current facility-administered medications for this visit. Current Outpatient Medications on File Prior to Visit Medication Sig Dispense Refill albuterol (PROVENTIL HFA;VENTOLIN HFA) 90 mcg/actuation Inhl HFA Aerosol Inhaler Inhale 2 Puffs into the lungs every 4 hours as needed for Wheezing. 18 g 2 albuterol (PROVENTIL) 2.5 mg /3 mL (0.083 %) Inhl Solution for Nebulization TAKE 3 ML BY NEBULIZATION EVERY 4 HOURS NEEDED FOR WHEEZING. 180 mL 11 allopurinoL (ZYLOPRIM) 100 mg Oral Tablet TAKE 1 TABLET BY MOUTH DAILY. 90 Tablet 3 apixaban (ELIQUIS) 5 mg Oral Tablet Take 1 Tablet by mouth 2 times daily. 60 Tablet 3 atorvastatin (LIPITOR) 10 mg Oral Tablet TAKE 1 TABLET BY MOUTH NIGHTLY. 90 Tablet 2 Blood Sugar Diagnostic [facility] Strip 1 Strip by [facility].(Non-Drug; Combo Route) route 2 times daily as needed. 100 Each 5 Blood-Glucose Meter [facility] Kit Use to check blood glucose two times daily as needed 1 Kit 0 busPIRone (BUSPAR) 15 mg Oral Tablet TAKE 1 TABLET BY MOUTH 2 TIMES DAILY NEEDED. 60 Tablet 2 cetirizine-psuedoephedrine (ZYRTEC-D) 5-120 mg Oral Tablet Sustained Release 12 hr Take 1 Tablet bymouth every 12 hours. 60 Tablet 2 clobetasoL (TEMOVATE) 0.05 % Top Cream Apply topically 2 times daily. 30 g 2 cyclobenzaprine (FLEXERIL) 5 mg Oral Tablet Take 1 Tablet by mouth nightly. 30 Tablet 2 cyclobenzaprine (FLEXERIL) 5 mg Oral Tablet TAKE 1 TABLET BY MOUTH NIGHTLY. 30 Tablet 0 EPINEPHrine (EPIPEN) 0.3 mg/0.3 mL Inj Auto-Injector Inject 0.3 mL as directed as needed for Anaphylaxis. Inject the contents of one pen (0.3 mL) into the muscle in the middle of the outer thigh as directed for anaphylaxis.Call 911 after administering. May repeat dose in 5-15 minutes if symptoms persist or worsen. 2 Each 0 FLUoxetine (PROZAC) 20 mg Oral Capsule TAKE 3 CAPSULES BY MOUTH DAILY. 90 Capsule 0 fUROsemide (LASIX) 20 mg Oral Tablet Take 1 Tablet by mouth 2 times daily. 60 Tablet 1 gabapentin (NEURONTIN) 300 mg Oral Capsule TAKE 1 CAPSULE BY MOUTH 2 TIMES DAILY. 60 Capsule 2 hydrOXYzine (VISTARIL) 25 mg Oral Capsule lisinopriL (PRINIVIL;ZESTRIL) 10 mg Oral Tablet TAKE 1 TABLET BY MOUTH 2 TIMES DAILY. 200 Tablet 2 meloxicam (MOBIC) 15 mg Oral Tablet Take 1 Tablet by mouth daily. 30 Tablet 2 metoprolol (LOPRESSOR) 50 mg Oral Tablet TAKE 1 TABLET BY MOUTH 2 TIMES DAILY. 180 Tablet 1 montelukast (SINGULAIR) 10 mg Oral Tablet TAKE 1 TABLET BY MOUTH NIGHTLY 30 Tablet 0 omeprazole (PRILOSEC) 20 mg Oral Capsule, Delayed Release(E.C.) TAKE 1 CAPSULE BY MOUTH ONCE DAILY 90 Capsule 2 ondansetron (ZOFRAN-ODT) 4 mg Oral Tablet, Rapid Dissolve Take 1 Tablet by mouth every 8 hours as needed for Nausea. 15 Tablet 0 OYSTER SHELL CALCIUM-VIT D3 500 mg-5 mcg (200 unit) Oral Tablet TAKE 2 TABLETS BY MOUTH ONCE DAILY 60 Tablet 11 potassium chloride (KLOR-CON M) 20 mEq Oral Tab Sust.Rel. Particle/Crystal TAKE 1 TABLET BY MOUTH DAILY. 90 Tablet 1 predniSONE (DELTASONE) 20 mg Oral Tablet Take 2 tablets daily for 4 days, then 1 tablet for 4 days 12 Tablet 0 theophylline CR, 24 hour, (UNIPHYL) 400 mg Oral Tablet Sustained Release 24 hr Take 1 Tablet by mouth daily. 30 Tablet 3 tiZANidine (ZANAFLEX) 4 mg Oral Tablet Take 1 Tablet by mouth 3 times daily. 30 Tablet 2 traZODone (DESYREL) 50 mg Oral Tablet Take 1 Tablet by mouth nightly. 30 Tablet 2 TRELEGY ELLIPTA 100-62.5-25 mcg Inhl Disk with Device INHALE 1 PUFF INTO THE LUNGS DAILY. 60 Each 2 triamcinolone (KENALOG) 0.1 % Top Cream No current facility-administered medications on file prior to visit. Outpatient Medications Marked as Taking for the 11/27/24 encounter (Office Visit) with Ramon Mandel MD Medication Sig Dispense Refill albuterol (PROVENTIL HFA;VENTOLIN HFA) 90 mcg/actuation Inhl HFA Aerosol Inhaler Inhale 2 Puffs into the lungs every 4 hours as needed for Wheezing. 18 g 2 albuterol (PROVENTIL) 2.5 mg /3 mL (0.083 %) Inhl Solution for Nebulization TAKE 3 ML BY NEBULIZATION EVERY 4 HOURS NEEDED FOR WHEEZING. 180 mL 11 allopurinoL (ZYLOPRIM) 100 mg Oral Tablet TAKE 1 TABLET BY MOUTH DAILY. 90 Tablet 3 apixaban (ELIQUIS) 5 mg Oral Tablet Take 1 Tablet by mouth 2 times daily. 60 Tablet 3 atorvastatin (LIPITOR) 10 mg Oral Tablet TAKE 1 TABLET BY MOUTH NIGHTLY. 90 Tablet 2 Blood Sugar Diagnostic Misc Strip 1 Strip by Misc.(Non-Drug; Combo Route) route 2 times daily as needed. 100 Each 5 Blood-Glucose Meter Misc Kit Use to check blood glucose two times daily as needed 1 Kit 0 busPIRone (BUSPAR) 15 mg Oral Tablet TAKE 1 TABLET BY MOUTH 2 TIMES DAILY NEEDED. 60 Tablet 2 cetirizine-psuedoephedrine (ZYRTEC-D) 5-120 mg Oral Tablet Sustained Release 12 hr Take 1 Tablet bymouth every 12 hours. 60 Tablet 2 clobetasoL (TEMOVATE) 0.05 % Top Cream Apply topically 2 times daily. 30 g 2 cyclobenzaprine (FLEXERIL) 5 mg Oral Tablet Take 1 Tablet by mouth nightly. 30 Tablet 2 cyclobenzaprine (FLEXERIL) 5 mg Oral Tablet TAKE 1 TABLET BY MOUTH NIGHTLY. 30 Tablet 0 EPINEPHrine (EPIPEN) 0.3 mg/0.3 mL Inj Auto-Injector Inject 0.3 mL as directed as needed for Anaphylaxis. Inject the contents of one pen (0.3 mL) into the muscle in the middle of the outer thigh as directed for anaphylaxis.Call 911 after administering. May repeat dose in 5-15 minutes if symptoms persist or worsen. 2 Each 0 FLUoxetine (PROZAC) 20 mg Oral Capsule TAKE 3 CAPSULES BY MOUTH DAILY. 90 Capsule 0 fUROsemide (LASIX) 20 mg Oral Tablet Take 1 Tablet by mouth 2 times daily. 60 Tablet 1 gabapentin (NEURONTIN) 300 mg Oral Capsule TAKE 1 CAPSULE BY MOUTH 2 TIMES DAILY. 60 Capsule 2 hydrOXYzine (VISTARIL) 25 mg Oral Capsule lisinopriL (PRINIVIL;ZESTRIL) 10 mg Oral Tablet TAKE 1 TABLET BY MOUTH 2 TIMES DAILY. 200 Tablet 2 meloxicam (MOBIC) 15 mg Oral Tablet Take 1 Tablet by mouth daily. 30 Tablet 2 metoprolol (LOPRESSOR) 50 mg Oral Tablet TAKE 1 TABLET BY MOUTH 2 TIMES DAILY. 180 Tablet 1 montelukast (SINGULAIR) 10 mg Oral Tablet TAKE 1 TABLET BY MOUTH NIGHTLY 30 Tablet 0 omeprazole (PRILOSEC) 20 mg Oral Capsule, Delayed Release(E.C.) TAKE 1 CAPSULE BY MOUTH ONCE DAILY 90 Capsule 2 ondansetron (ZOFRAN-ODT) 4 mg Oral Tablet, Rapid Dissolve Take 1 Tablet by mouth every 8 hours as needed for Nausea. 15 Tablet 0 OYSTER SHELL CALCIUM-VIT D3 500 mg-5 mcg (200 unit) Oral Tablet TAKE 2 TABLETS BY MOUTH ONCE DAILY 60 Tablet 11 potassium chloride (KLOR-CON M) 20 mEq Oral Tab Sust.Rel. Particle/Crystal TAKE 1 TABLET BY MOUTH DAILY. 90 Tablet 1 predniSONE (DELTASONE) 20 mg Oral Tablet Take 2 tablets daily for 4 days, then 1 tablet for 4 days 12 Tablet 0 theophylline CR, 24 hour, (UNIPHYL) 400 mg Oral Tablet Sustained Release 24 hr Take 1 Tablet by mouth daily. 30 Tablet 3 tiZANidine (ZANAFLEX) 4 mg Oral Tablet Take 1 Tablet by mouth 3 times daily. 30 Tablet 2 traZODone (DESYREL) 50 mg Oral Tablet Take 1 Tablet by mouth nightly. 30 Tablet 2 TRELEGY ELLIPTA 100-62.5-25 mcg Inhl Disk with Device INHALE 1 PUFF INTO THE LUNGS DAILY. 60 Each 2 triamcinolone (KENALOG) 0.1 % Top Cream Allergies Allergen Reactions Penicillins Anaphylaxis Patient received Keflex in 2013 without reported issues Sulfa (Sulfonamide Antibiotics) Anaphylaxis Review of Systems Constitutional: Positive for malaise/fatigue. Negative for diaphoresis, fatigue, weight gain and weight loss. HENT: Negative for nosebleeds. Cardiovascular: Negative for leg swelling, palpitations and syncope. Respiratory: Positive for shortness of breath. Negative for cough. Skin: Negative for flushing and rash. Musculoskeletal: Negative for arthralgias, falls and myalgias. Gastrointestinal: Negative for heartburn and melena. Neurological: Negative for dizziness, headaches, vertigo and weakness. Psychiatric/Behavioral: Negative for depression. The patient does not have insomnia. Allergic/Immunologic: Negative for hives and persistent infections. Objective: Patient Vitals for the past 24 hrs: Pulse BP BP Location Patient Position 11/27/24 1419 94 124/66 Left arm Sitting There is no height or weight on file to calculate BMI. Physical Exam Constitutional: She appears healthy. No distress. HENT: Mouth/Throat: Dentition is normal. Oropharynx is clear. Eyes: Conjunctivae are normal. Neck: Thyroid normal. No JVD present. No neck adenopathy. No thyromegaly present. Cardiovascular: Normal rate, regular rhythm, normal heart sounds and normal pulses. Exam reveals nogallop. Pulmonary/Chest: Effort normal and breath sounds normal. She has no wheezes. She has no rales. Abdominal: Soft. She exhibits no distension and no mass. There is no abdominal tenderness. Musculoskeletal: General: No tenderness or edema. Cervical back: Neck supple. Neurological: She is alert and oriented to person, place, and time. Skin: Skin is warm and dry. No rash noted. No cyanosis. No jaundice. Nails show no clubbing. Relevant Studies No results found for this visit on 11/27/24. Lab Review Lab Results Component Value Date WBC 12.2 (H) 11/12/2024 HGB 15.8 (H) 11/12/2024 PLT 308 11/12/2024 Lab Results Component Value Date NA 136 11/12/2024 K 3.6 11/12/2024 BUN 34 (H) 11/12/2024 CREATININE 1.73 (H) 11/12/2024 GLU 131 (H) 11/12/2024 ALT 12 02/16/2023 ALKPHOS 151 (H) 02/16/2023 Lab Results Component Value Date TSH 0.364 02/08/2022 Lab Results Component Value Date CHOLESTEROL 184 10/21/2020 HDL 44 10/21/2020 LDLCALC 82 10/21/2020 TRIG 288 (H) 10/21/2020 Lab Results Component Value Date INR 0.94 11/19/2022 [id number] Stroke Risk Points: 4 Values used to calculate this score: Points Metrics 1 Has Congestive Heart Failure: Yes 1 Has Hypertension: Yes 1 Age: 69 0 Has Diabetes: No 0 Had Stroke: No Had TIA: No Had Thromboembolism: No 0 Has Vascular Disease: No 1 Clinically Relevant Sex: Female 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 Mandel Last in Clinic Check: 11/12/24 (hospital) Device is not on advisory Presenting: /BVP 98 wth runs of AT 102-126 bpm Underlying Rhythm: SB 50s/CHB--no escape Patient is pacemaker dependent Pacing Mode / Rate: Lower Rate: UTR / USR: / Battery: 8.7 years Battery Voltage: 3.01 V [...] Vector: LV2to LV3 Lead Implant Date: 07/11/23 Sensin mV Pacing Threshold: 1V @ 1ms Impedance: Ejection Fraction History 12/20/2022 02/09/2021 9:07 AM 3:23 PM Ejection Fraction >70 75 HF Monitoring: No On Anticoagulant: Yes (On Eliquis) Dx: Complete Heart Block; Atrial Fibrillation; Diastolic Heart Failure Next Remote Due: 01/18/25 Phone Number with Vector: [phone] Impression: 12 AT/AF monitored events most recent was on 11-26-24, longest lased >24hr, VR contolled. Histogram good, optivol wnl and trends stable AF alert turned on 24hr. 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 Coleman was seen and examined today she has a BiV pacemaker in place she has normal device function with normal lead integrity normal predicted battery longevity, will continue quarterly remote checks and we will see her back in 1 year. Normal device check. documented in this encounter Miscellaneous Notes * Patient Instructions - Mckenzie Gambino MA - 11/27/2024 2:00 PM EDT You may be contacted by mail or e-mail to participate in a patient satisfaction survey regarding your office visit today. We value your opinion and depend on your feedback to make improvements and provide you with the best possible experience while receiving high quality medical treatment. Your time in completing this survey is greatly appreciated. documented in this encounter Plan of Treatment Upcoming Encounters Date Type Department Care Team (Late st Contact Info) Description 01/25/2025 12:15 PM EDT Office Visit [facility] [address] [place] [address] Melecio Dubois MD [address] [place] [address] [address] [place], [place] [id number] 02/13/2025 9:40 AM EST Office Visit [facility] [place] [address] [place] [address] Michael Delgado MD [address] [place] [address] [place] [address] 07/09/2025 2:30 PM EDT Office Visit [facility] [address] [address] Michael Delgado MD [address] [place] [address] [id number] 11/28/2025 1:30 PM EDT Office Visit [facility] [address] [place] [address] [address] [place] [address] 11/28/2025 2:00 PM EDT Office Visit [facility] [address] [place] [address] [address] [place] [address] Ramon Mandel MD [address] [place] [address] [id number] documented as of this encounter Goals Goal Patient Goal Type Associated Problems Recent Progress Patient-Stated? 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
--- OUTSIDE RECORDS SUMMARY | 2024-12-25 13:15 | XMS_ITS | Encounter Summary ---
Author Organization [place] [address] Care Team Providers Care Hand Suture Winder Name Role Phone Jose Maria Souza MD Primary Care Provider Reason for Visit * Reason Comments Shoulder Pain Encounter Details Date Type Department Care Team (Late st Contact Info) Description 12/25/2024 1:15 PM EDT Office Visit [facility] [address] [place] [address] Jose Maria Souza MD [address] [place] [address] Acute pain of right shoulder (Primary Dx); Primary hypertension Social History Tobacco Use Types Packs/Day Years Used Date Smoking Tobacco: Former Cigarettes 1 54 0 04/11/1965 - 11/16/2014 Smokeless Tobacco: Never Alcohol Use Standard Drinks/Week Comments Not Currently 0 (1 standard drink = 0.6 oz pur e alcohol) [facility] Utilities Answer Date Recorded In the past 12 months has [employer], gas, oil, or water company threatened to shut off services in your home? No 10/02/2024 Overall Financial Resource Strain (CARDIA) Answe r Date Recorded How hard is it for you to pa y for the very basics like food, housing, medical care, and heating? Not hard at all 10/02/2024 PHQ-2 Answer Date Recorded PHQ-2 Total Score 0 01/24/2024 [facility] - Occupational Stress Questionnaire Answer Date Recorded [...] any time in the past [address] [facility], were you homeless or living in a longterm (including now)? 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 Not on file Not on file documented as of this encounter Last Filed Vital Signs Vital Sign Reading Time Taken Comments Blood Pressure 122/76 12/25/2024 1:15 PM EDT Pulse - - Temperature 36.8 C (98.2 F) 12/25/2024 1:15 PM EDT Respiratory Rate - - Oxygen Saturation - - Inhaled Oxygen Concentration - - Weight 83.9 kg (185 lb) 12/25/2024 1:15 PM EDT Height 167.6 cm (5' 6 ) 12/25/2024 1:15 PM EDT Body Mass Index 29.86 12/25/2024 1:15 PM EDT documented in this encounter Functional [...] Rafaela Zelaya RN documented in this encounter Ordered Prescriptions Prescription Sig Dispense Quantity Refills Last Filled Start Date End Date tiZANidine (ZANAFLEX) 4 mg Oral TabletIndications: Acute pain of right shoulder Take 1 Tablet by mouth nightly. 30 Tablet 12/25/2024 ketorolac (TORADOL) 10 mg Oral TabletIndications: Acute pain of right shoulder Take 1 Tablet by mouth every 6 hours as needed for Pain for up to 5 days. 20 Tablet 12/25/2024 12/30/2024 documented in this encounter Progress Notes * Jose Maria Souza MD - 12/25/2024 1:15 PM EDTAssociated Problem(s): Hypertension BP well controlled. * Jose Maria Souza MD - 12/25/2024 1:15 PM EDT Vitals: 12/25/24 1315 BP: 122/76 Temp: 98.2 ??F (36.8 ??C) Weight: 185 lb (83.9 kg) Height: 5' 6 (1.676 m) Body mass index is 29.86 kg/m??. SUBJECTIVE: Chief Complaint Patient presents with Shoulder Pain HPI: Shoulder Pain The pain is present in the right shoulder and neck. This is a new problem. Episode onset: 4 days. The problem occurs constantly. The problem has been unchanged. Associated symptoms include tingling. Pertinent negatives include no fever. She has tried nothing for the symptoms. Right neck and shoulder pain, no improvement with ice. No injury. Hypertension: Home reporting of hypertension was reviewed at time of visit. Michelle denies any episodes of dizziness, lightheadedness, presyncope, syncope, headache, or chest pain. Michelle does not report any new symptoms of possible hypertension sequelae. The patient reports that she is not having significant issues or side effects of current medications/treatments. Hyperlipidemia: Last Lipid and liver panel has been reviewed. Current cholesterol goals discussed with patient. Thepatient is on a lipid lowering agent. The patient currently is on a statin. No complaints of side effects from medication. The patient is not having issues maintaining compliance with the previously outlined care plan. The patient does not report significant side effects of current medications/treatments. Diet has been reviewed with patient. COPD: The patient is not having any problems with hercurrent medications. The patient does not report any new symptoms of COPD. Controlled Substance Prescribing Management: As part of today's visit Michelle is also being followedfor controlled substance management for Chronic midline low back pain with bilateral sciatica. Details of the progress of the monitored condition are noted in that section of the HPI. The controlled substance flow sheet has been reviewed. Review of Systems Constitutional: Negative for fever. Eyes: Negative for visual disturbance. Respiratory: Negative for cough. Cardiovascular: Negative for chest pain. Gastrointestinal: Negative for abdominal pain, constipation and diarrhea. Genitourinary: Negative for difficulty urinating. Musculoskeletal: Positive for arthralgias. Negative for joint swelling. Skin: Negative for rash. Neurological: Positive for tingling. Negative for dizziness, light-headedness and headaches. OBJECTIVE: Physical Exam Constitutional: General: She is not in acute distress. Appearance: She is well-developed. She is not diaphoretic. HENT: Head: Normocephalic and atraumatic. Eyes: General: Right eye: No discharge. Left eye: No discharge. Conjunctiva/sclera: Conjunctivae normal. Skin: General: Skin is warm. Neurological: Mental Status: She is alert. Psychiatric: Mood and Affect: Mood normal. Speech: Speech normal. Behavior: Behavior normal. Assessment & Plan Acute pain of right shoulder Orders: ketorolac (TORADOL) injection 60 mg ketorolac (TORADOL) 10 mg Oral Tablet; Take 1 Tablet by mouth every 6 hours as needed for Pain for up to 5 days. tiZANidine (ZANAFLEX) 4 mg Oral Tablet; Take 1 Tablet by mouth nightly. Primary hypertension BP well controlled. documented in this encounter Plan of Treatment Upcoming Encounters Date Type Department Care Team (Late st Contact Info) Description 01/25/2025 12:15 PM EDT Office Visit [facility] [address] [place] [address] Melecio Dubois MD [address] [facility] [address] [place] [address] 02/13/2025 9:40 AM EST Office Visit [facility] [place] [address] [place] [address] Michael Delgado MD [address] [place] [address] [place] [address] 07/09/2025 2:30 PM EDT Office Visit [facility] [place] [address] [place] [address] [id number] Michael Delgado MD [address] [place] [address] [place] [address] 11/28/2025 1:30 PM EDT Office Visit [facility] [address] [place] [address] [place] [address] 11/28/2025 2:00 PM EDT Office Visit [facility] [address] [place] [address] Ramon Mandel MD [address] [place] [address] [address] [place], [place] [phone] documented as of this encounter Goals Goal [...] as of this encounter Visit Diagnoses Diagnosis Acute pain of right shoulder- Primary Primary hypertension Unspecified essential hypertension documented in this encounter Administered Medications Inactive Administered Medications - up to 1 most recent administrations Medication Order MAR Action Action Date Dose Rate Site ketorolac (TORADOL) injection 60 mg 60 mg, Intramuscular, ONCE, 1 dose, On Tue12/25/24 at 1415, For IM Administration: Give undiluted, slowly and deeply into the muscle., Dx: 1. Acute pain of right shoulderIndications:Acut e pain of right shoulder Given 12/25/2024 2:13 PM EDT 60 mg Left upper gluteus documented in this encounter Orders Medications Ordered That Aris ht Not Have Been Administered Count Last Ordered Date First Ordered Date ketorolac (TORADOL) injection 60 mg 1 12/25 documented in this encounter Additional Health Concerns Assessment Noted Time A fall risk assessment has been complete d for the patient 10/02/2024 1:23 PM EDT documented as of this encounter Care Teams Hand Suture Winder Relationship Specialty Start Date End Date Jose Maria Souza MD [address] [place] [address] PCP - General Family Medicine 07/31/18 documented as of this encounter
[2025-01-25] VITALS (18 sets, daily range): BP systolic 100–135; BP diastolic 50–70; PULSE 81–98; RESP 13–27; TEMP 36.7–36.8; O2SAT 93–95; BMI 29.5; BMI 29.0
--- NOTE | 2025-01-25 10:36 | ECG_ITS ---
APPROVED REPORT Exam: Resting ECG HR:96 bpm ECG Measurements Heart Rate 96 AXES RI 290 P 246 QRSd 2 QRS 0 QT 106 T 0 QTc 159 Conclusion ELECTRONIC ATRIAL PACEMAKER INDETERMINATE AXIS MARKED ST ELEVATION, CONSIDER ANTEROSEPTAL INJURY [MARKED ST ELEVATION W/O No STEMI Electronically signed by : JAIME ABREU, 01/25/2025 16:08:12
--- NOTE | 2025-01-25 10:41 | CT_ITS ---
FINAL REPORT TECHNIQUE: Axial imaging of the chest is obtained after the administration of contrast. 3-D MIP reformatted images were also obtained and reviewed. This study was performed with techniques to keep radiation doses as low as reasonably achievable (ALARA). Individualized dose reduction techniques using automated exposure control or adjustment of mA and/or kV according to the patient's size were employed. CLINICAL HISTORY: CP to back COMPARISON: 09/13/2024 FINDINGS: The pulmonary arteries are well filled. There is no evidence of pulmonary embolus. There is no aortic dissection. Heart size is normal. There is no mediastinal, hilar, or axillary lymphadenopathy. There is a left upper lobe nodule best seen on image #27 of series 5, measuring 9 mm in size, stable. Changes of emphysema are noted. There is evidence of prior granulomatous disease. There is a trace right pleural effusion, without evidence of a left pleural or pericardial effusion. Limited evaluation of the upper abdomen is without acute abnormality. No acute osseous abnormality. IMPRESSION: 1. No evidence of pulmonary embolism or aortic dissection. 2. 9 mm left upper lobe nodule, stable since the prior CTA of the chest dated 09/13/2024. Recommend continued follow-up or PET/CT for further evaluation. Reviewed, Interpreted and Dictated by Corazon Damian MD Transcribed by Mylene Sweet Authenticated and [facility]
--- OUTSIDE RECORDS SUMMARY | 2025-01-25 10:41 | XMS_ITS | Encounter Summary ---
Author Organization [place] [address] Care Team Providers Care Freight Traffic Consultant Name Role Phone Jose Maria Souza MD Primary Care Provider Encounter Details Date Type Department Care Team (Late st Contact Info) Description 01/23/2025 Orders Only [facility] [address] [facility] [address] [place] [address] Ramon Mandel MD [address] [place], [place] [id number] Vector Remote Device Social History Tobacco Use Types Packs/Day Years Used Date Smoking Tobacco: Former Cigarettes 1 54 0 04/11/1965 - 11/16/2014 Smokeless Tobacco: Never Alcohol Use Standard Drinks/Week Comments Not Currently 0 (1 standard drink = 0.6 oz pur e alcohol) [facility] Utilities Answer Date Recorded In the past 12 months has [employer], gas, oil, or water company threatened to shut off services in your home? No 10/02/2024 Overall Financial Resource Strain (CARDIA) Answe r Date Recorded How hard is it for you to pa y for the very basics like food, housing, medical care, and heating? Not hard at all 10/02/2024 PHQ-2 Answer Date Recorded PHQ-2 Total Score 0 01/24/2024 [facility] [place] of Occupat ional Health - Occupational Stress [...] any time in the past 12 m [facility], were you homeless or living in a halfway (including now)? 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 Not on file Not on file documented as of this encounter Functional Status * Is the [...] Rafaela Zelaya RN documented in this encounter Plan of Treatment Upcoming Encounters Date Type Department Care Team (Late st Contact Info) Description 01/25/2025 12:15 PM EDT Office Visit [facility] [address] [place] [address] Melecio Dubois MD [address] [place] [address] 02/13/2025 9:40 AM EST Office Visit [facility] [place] [address] [place] [address] Michael Delgado MD [address] [place] [address] [place] [address] 07/09/2025 2:30 PM EDT Office Visit [facility] [place] [address] [place] [address] Michael Delgado MD [address] [place] [address] [place], [place] [phone] 11/28/2025 1:30 PM EDT Office Visit [facility] [address] [place] [address] [address] [place] [address] 11/28/2025 2:00 PM EDT Office Visit [facility] [address] [place] [address] [address] [place] [address] Ramon Mandel MD [address] [place] [address] [place] [address] documented as of this encounter Goals Goal Patient Goal Type Associated Problems Recent Progress Patient-Stated? Author Blood Pressure < 140/90 Blood Pressure 122/76(2024 1:15 PM EDT) No Arleth De La Torre RMA Maintain a healthy diet, exercise regularly and maintain an ideal body weight General No Janette Motta CCMA Stay Tobacco Free Lifestyle On track( 021 8:33 AM EST) No Janette Motta CCMA documented as of this encounter Procedures Procedure Name Priority Date/Time Associated Diagnosis Comments PA REM INTERROG PM/LDLS PM <90 D PHYS/QHP Routine 01/23/2025 Vector Remote Device documented in this encounter Results * VECTOR REMOTE DEVICE (01/23/2025) 01/23/2025 Narrative [facility] - 01/23/2025 No significant episodes. NSVT: 1 lasting <5s. Patient on AC. Mode: DDDR. AP: 12%. DATA ANALYST REPORT WRITER: 99.5%. Effective BiVP: 99.5%. Normal device function. us Ramon Mandel MD [facility] C[facility] CATH ORDERABLE S Final Result [facility] [address] [place] [address] documented in this encounter Visit Diagnoses Diagnosis Vector Remote Device documented in this encounter Additional Health Concerns Assessment Noted Time A fall risk assessment has been complete d for the patient 10/02/2024 1:23 PM EDT documented as of this encounter Care Teams Freight Traffic Consultant Relationship Specialty Start Date End Date Jose Maria Souza MD [address] [place] [address] PCP - General Family Medicine 07/31/18 documented as of this encounter
--- OUTSIDE RECORDS SUMMARY | 2025-01-25 10:41 | XMS_ITS | Encounter Summary ---
Author Organization [place] [address] Care Team Providers Care Public Relations Sales Marketing Name Role Phone Jose Maria Souza MD Primary Care Provider Encounter Details Date Type Department Care Team (Late st Contact Info) Description 01/24/2025 Orders Only [facility] [address] [facility] [address] [place] [address] Ramon Mandel MD [address] [place] [address] Vector Remote Device Social History Tobacco Use Types Packs/Day Years Used Date Smoking Tobacco: Former Cigarettes 1 54 0 04/11/1965 - 11/16/2014 Smokeless Tobacco: Never Alcohol Use Standard Drinks/Week Comments Not Currently 0 (1 standard drink = 0.6 oz pur e alcohol) [facility] Utilities Answer Date Recorded In the past 12 months has [employer] electric, gas, oil, or water company threatened to shut off services in your home? No 10/02/2024 Overall Financial Resource Strain (CARDIA) Answe r Date Recorded How hard is it for you to pa y for the very basics like food, housing, medical care, and heating? Not hard at all 10/02/2024 PHQ-2 Answer Date Recorded PHQ-2 Total Score 0 01/24/2024 [facility] of Occupat ional Health - Occupational Stress [...] any time in the past 12 m [facility], were you homeless or living in a skilled nursing (including now)? 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 Not [...] EDT Office Visit [facility] [address] [place] [address] Melecio Dubois MD [address] [place] [address] 02/13/2025 9:40 AM EST Office Visit [facility] [place] [address] [place] [address] Michael Delgado MD [address] [place] [address] [place] [address] 07/09/2025 2:30 PM EDT Office Visit [facility] [place] [address] [place] [address] Michael Delgado MD [address] [place] [address] [address] [place], [place] [phone] 11/28/2025 1:30 PM EDT Office Visit [facility] [address] [place] [address] [address] [place] [address] 11/28/2025 2:00 PM EDT Office Visit [facility] [address] [place] [address] [address] [place] [address] Ramon Mandel MD [address] [place] [address] [place] [address] documented as of this encounter [...] Procedure Name Priority Date/Time Associated Diagnosis Comments UT REM INTERROG ICPMS <30 D PHYS/QHP Routine 01/24/2025 Vector Remote Device documented in this encounter Results * VECTOR REMOTE HEART FAILURE DEVICE (01/24/2025) 01/24/2025 Narrative [facility] - 01/24/2025 Possible Fluid Accumulation. Possible OptiVol fluid accumulation: 03-Jan-2025 -- 12-Jan-2025.. Addendum: OptiVol currently WNL /BE us Ramon Mandel MD [facility] CARDIAC CATH ORDERABLE S Final Result [facility] [address] [place] [address] documented in this encounter Visit Diagnoses Diagnosis Vector Remote Device documented in this encounter Additional Health Concerns Assessment Noted Time A fall risk assessment has been complete d for the patient 10/02/2024 1:23 PM EDT documented as of this encounter Care Teams Public Relations Sales Marketing Relationship Specialty Start Date End Date Jose Maria Souza MD [address] [place] [address] PCP - General Family Medicine 07/31/18 documented as of this encounter
--- OUTSIDE RECORDS SUMMARY | 2025-01-25 10:44 | XMS_ITS | Encounter Summary ---
Author [place] [address] Care Team Providers Care Hot Mill Tin Roller Name Role Phone Jose Maria Souza MD Primary Care Provider Encounter Details Date Type Department Care Team (Late st Contact Info) Description 12/23/2024 Orders Only [facility] [address] [facility] [address] [place] [address] Ramon Mandel MD [address] [place], [place] [phone] Vector Remote Device Social History Tobacco Use Types Packs/Day Years Used Date Smoking Tobacco: Former Cigarettes 1 54 0 04/11/1965 - 11/16/2014 Smokeless Tobacco: Never Alcohol Use Standard Drinks/Week Comments Not Currently 0 (1 standard drink = 0.6 oz pur e alcohol) [facility] Utilities Answer Date Recorded In the past 12 months has [employer] electric, gas, oil, or water company threatened to shut off services in your home? No 10/02/2024 Overall Financial Resource Strain (CARDIA) Answe r Date Recorded How hard is it for you to pa y for the very basics like food, housing, medical care, and heating? Not hard at all 10/02/2024 PHQ-2 Answer Date Recorded PHQ-2 Total Score 0 01/24/2024 [facility] of Occupat ional Health - Occupational Stress [...] any time in the past 12 m [facility], were you homeless or living in a usp (including now)? 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 Not [...] EDT Office Visit [facility] [place] [address] [place] [address] Melecio Dubois MD [address] [place] [address] 02/13/2025 9:40 AM EST Office Visit [facility] [place] [address] [place] [address] Michael Delgado MD [address] [place] [address] [place] [address] 07/09/2025 2:30 PM EDT Office Visit [facility] [place] [address] [place] [address] Michael Delgado MD [address] [place] [address] [place] [address] 11/28/2025 1:30 PM EDT Office Visit [facility] [address] [place] [address] [address] [place] [address] 11/28/2025 2:00 PM EDT Office Visit [facility] [address] [place] [address] [address] [place] [address] Ramon Mandel MD [address] [place] [address] [place] [address] documented as of this encounter [...] Procedure Name Priority Date/Time Associated Diagnosis Comments HI REM INTERROG ICPMS <30 D PHYS/QHP Routine 12/23/2024 12:00 AM EDT Vector Remote Device documented in this encounter Results * VECTOR REMOTE HEART FAILURE DEVICE (12/23/2024 12:00 AM EDT) 12/23/2024 Narrative [facility] - 12/23/2024 12:00 AM EDT Stable trend. us Ramon Mandel MD [facility] CARDIAC CATH ORDERABLE S Final Result [facility] [address] [place] [address] documented in this encounter Visit Diagnoses Diagnosis Vector Remote Device documented in this encounter Additional Health Concerns Assessment Noted Time A fall risk assessment has been complete d for the patient 10/02/2024 1:23 PM EDT documented as of this encounter Care Teams Hot Mill Tin Roller Relationship Specialty Start Date End Date Salley, Jose Maria Zay, MD [address] [place] [address] PCP - General Family Medicine 07/31/18 documented as of this encounter
--- OUTSIDE RECORDS SUMMARY | 2025-01-25 10:44 | XMS_ITS | Encounter Summary ---
Author Organization [place] [address] Care Team Providers Care Supervisor Shipping Name Role Phone Jose Maria Souza MD Primary Care Provider Reason for Visit * Reason Comments Medication Refill Encounter Details Date Type Department Care Team (Late st Contact Info) Description 01/17/2025 Refill [facility] [address] [place] [address] Jose Maria Souza MD [address] [place] [address] Medication Refill Social History Tobacco Use Types Packs/Day Years Used Date Smoking Tobacco: Former Cigarettes 1 54 0 04/11/1965 - 11/16/2014 Smokeless Tobacco: Never Alcohol Use Standard Drinks/Week Comments Not Currently 0 (1 standard drink = 0.6 oz pur e alcohol) [facility] Utilities Answer Date Recorded In the past 12 months has [employer] electric, gas, oil, or water company threatened to shut off services in your home? No 10/02/2024 Overall Financial Resource Strain (CARDIA) Answe r Date Recorded How hard is it for you to pa y for the very basics like food, housing, medical care, and heating? Not hard at all 10/02/2024 PHQ-2 Answer Date Recorded PHQ-2 Total Score 0 01/24/2024 [facility] [place] of Occupat ional Health - Occupational Stress [...] any time in the past 12 m [facility], were you homeless or living in a longterm (including now)? 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 Not on file Not [...] Refills Last Filled Start Date End Date FLUoxetine (PROZAC) 40 mg Oral CapsuleIndications :Generalized anxiety disorder TAKE 1 CAPSULE BY MOUTH ONCE DAILY 90 Capsule 1 01/21/2025 documented in this encounter Plan of Treatment Upcoming Encounters Date Type Department Care Team (Late st Contact Info) Description 01/25/2025 12:15 PM EDT Office Visit [facility] [address] [place] [address] Melecio Dubois MD [address] [facility] 19 [place] [address] 02/13/2025 9:40 AM EST Office Visit [facility] [place] [address] [place] [address] Michael Delgado MD [address] [place] [address] [place] [address] 07/09/2025 2:30 PM EDT Office Visit [facility] [place] [address] [place] [phone] Michael Delgado MD [address] [place] [address] 11/28/2025 1:30 PM EDT Office Visit [facility] [address] [place] [address] [address] [place] [address] 11/28/2025 2:00 PM EDT Office Visit [facility] [address] [place] [address] Ramon Mandel MD [address] [place] [phone] documented as of this encounter Goals Goal [...] as of this encounter Visit Diagnoses Diagnosis Generalized anxiety disorder documented in this encounter Additional Health Concerns Assessment Noted Time A fall risk assessment has been complete d for the patient 10/02/2024 1:23 PM EDT documented as of this encounter Care Teams Supervisor Shipping Relationship Specialty Start Date End Date Jose Maria Souza MD [address] [place], [place] [phone] PCP - General Family Medicine 07/31/18 documented as of this encounter
--- OUTSIDE RECORDS SUMMARY | 2025-01-25 10:44 | XMS_ITS | Encounter Summary ---
Author Organization [place] [address] Care Team Providers Care Scrap Burner Name Role Phone Jose Maria Souza MD Primary Care Provider Encounter Details Date Type Department Care Team (Late st Contact Info) Description 11/20/2024 Orders Only [facility] [address] [facility] [address] [place] [address] Ramon Mandel MD [address] [place], [place] [phone] Vector Remote Device Social History Tobacco Use Types Packs/Day Years Used Date Smoking Tobacco: Former Cigarettes 1 54 0 04/11/1965 - 11/16/2014 Smokeless Tobacco: Never Alcohol Use Standard Drinks/Week Comments Not Currently 0 (1 standard drink = 0.6 oz pur e alcohol) [facility] Utilities Answer Date Recorded In the past 12 months has [employer] electric, gas, oil, or water company threatened to shut off services in your home? No 10/02/2024 Overall Financial Resource Strain (CARDIA) Answe r Date Recorded How hard is it for you to pa y for the very basics like food, housing, medical care, and heating? Not hard at all 10/02/2024 PHQ-2 Answer Date Recorded PHQ-2 Total Score 0 01/24/2024 [facility] [place] of Occupat ional Health - Occupational Stress [...] any time in the past 12 m [facility], were you homeless or living in a snf (including now)? No 10/02/[address] 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 Not [...] EDT Office Visit [facility] [address] [place] [address] Melecio Dubois MD [address] [place] [address] 02/13/2025 9:40 AM EST Office Visit [facility] [place] [address] [place] [address] Michael Delgado MD [address] [place] [address] [place] [address] 07/09/2025 2:30 PM EDT Office Visit [facility] [place] [address] [place] [address] Michael Delgado MD [address] [place] [address] [address] [place], [place] [phone] 11/28/2025 1:30 PM EDT Office Visit [facility] [address] [place] [address] [address] [place] [address] 11/28/2025 2:00 PM EDT Office Visit [facility] [address] [place] [place] [address] [address] [place] [address] Ramon Mandel MD [address] [place] [address] [place] [address] documented as of this encounter [...] Procedure Name Priority Date/Time Associated Diagnosis Comments VECTOR REMOTE DEVICE Routine 11/20/2024 12:00 AM EDT Vector Remote Device documented in this encounter Results * VECTOR REMOTE DEVICE (11/20/2024 12:00 AM EDT) 11/20/2024 Narrative [facility] - 11/20/2024 12:00 AM EDT AT/AF burden increase >10%, previously reported 12% on 11/12/24. Atrial Episodes: 10 c/w AF/AFL with intermittent atrial undersensing. AT/AF [place]: 36%. Longest atrial episode: 41h:22m:3s. Patient on AC. Mode: DDDR. AP: 21%. CUSTOMER SU[employer] ADVOCATE: 99.6%. Effective BiVP: 99.6%. Normal device function. /// ADDENDUM: Known h/o PAF. Avg V-rates = controlled. Opti-Vol @ baseline. Integrity counters = (0). Pt was not called. bv us Ramon Mandel MD [facility] CARDIAC CATH ORDERABLE S Final Result [facility] 1 [place] [address] documented in this encounter Visit Diagnoses Diagnosis Vector Remote Device documented in this encounter Additional Health Concerns Assessment Noted Time A fall risk assessment has been complete d for the patient 10/02/2024 1:23 PM EDT documented as of this encounter Care Teams Scrap Burner Relationship Specialty Start Date End Date Jose Maria Souza MD [address] [place] [address] PCP - General Family Medicine 07/31/18 documented as of this encounter
--- OUTSIDE RECORDS SUMMARY | 2025-01-25 10:44 | XMS_ITS | Encounter Summary ---
Author Organization [place] [address] Care Team Providers Care Human Resources Specialist Name Role Phone Jose Maria Souza MD Primary Care Provider Reason for Visit * Reason Comments Medication Refill Encounter Details Date Type Department Care Team (Late st Contact Info) Description 01/07/2025 Refill [facility]P [facility] [address] [place] [address] Jose Maria Souza MD [address] [place] [address] Medication Refill Social History Tobacco Use Types Packs/Day Years Used Date Smoking Tobacco: Former Cigarettes 1 54 0 [birth year]/11/1965 - 11/16/2014 Smokeless Tobacco: Never Alcohol Use Standard Drinks/Week Comments Not Currently 0 (1 standard drink = 0.6 oz pur e alcohol) [facility] Utilities Answer Date Recorded In the past 12 months has [employer] electric, gas, oil, or water company threatened to shut off services in your home? No 10/02/2024 Overall Financial Resource Strain (CARDIA) Answe r Date Recorded How hard is it for you to pa y for the very basics like food, housing, medical care, and heating? Not hard at all 10/02/2024 PHQ-2 Answer Date Recorded PHQ-2 Total Score 0 01/24/2024 [place] of Occupat ional Health - Occupational Stress [...] any time in the past 12 m [facility], were you homeless or living in a alf (including now)? 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 * Telephone Encounter - Jose Maria Souza MD - 01/08/2025 9:10 AM EDT Toradol pills are a one-time use for 5 days after the receiving of an injection, this is FDA protocol, the pharmacy will deny any refill of the medication. We can always do a repeat shot followed by the pills again in the office if needed soon. * Telephone Encounter - Viktoriya Arreaga MA - 01/08/2025 7:53 AM EDT [place] 12/25/24 Last refill 12/25/24 OK to refill? documented in this encounter Plan of Treatment Upcoming Encounters Date Type Department Care Team (Late st Contact Info) Description 01/25/2025 12:15 PM EDT Office Visit [facility] [address] [place] [address] Melecio Dubois MD [address] [place] [address] [address] [place] [address] 02/13/2025 9:40 AM EST Office Visit [facility] [place] [address] [place] [address] Michael Delgado MD [address] [place] [address] 07/09/2025 2:30 PM EDT Office Visit [facility] [place] [address] [place] [address] Michael Delgado MD [address] [place] [phone] 11/28/2025 1:30 PM EDT Office Visit [facility] [address] [place] [address] 11/28/2025 2:00 PM EDT Office Visit [facility] [address] [place] [address] Ramon Mandel MD [address] [place] [address] documented as of this encounter Goals [...] Visit Diagnoses Diagnosis Acute pain of right shoulder documented in this encounter Additional Health Concerns Assessment Noted Time A fall risk assessment has been complete d for the patient 10/02/2024 1:23 PM EDT documented as of this encounter Care Teams Human Resources Specialist Relationship Specialty Start Date End Date Jose Maria Souza MD [address] [place] [address] PCP - General Family Medicine 07/31/18 documented as of this encounter
--- OUTSIDE RECORDS SUMMARY | 2025-01-25 10:44 | XMS_ITS | Encounter Summary ---
Author Organization [place] [address] Care Team Providers Care Flake Or Shred Roll Operator Name Role Phone Jose Maria Souza MD Primary Care Provider Reason for Visit * Reason Onset Date Comments Relaying Information 01/07/2025 Pt stating wanting to speak to Dr. Souza about another pt Peter/ Encounter Details Date Type Department Care Team (Late st Contact Info) Description 01/07/2025 Telephone [facility] 100 [place] [address] Jose Maria Souza MD [address] [place] [address] Relaying Information (Pt stating wanting to speak to Dr. Souza about another pt Peter/ ) Social History Tobacco Use Types Packs/Day Years Used Date Smoking Tobacco: Former Cigarettes 1 54 0 [birth year]/11/1965 - 11/16/2014 Smokeless Tobacco: Never Alcohol Use Standard Drinks/Week Comments Not Currently 0 (1 standard drink = 0.6 oz pur e alcohol) [facility] Utilities Answer Date Recorded In the past [...] Date Recorded PHQ-2 Total Score 0 01/24/2024 [facility] of Occupat ional Health - Occupational Stress [...] any time in the past 12 m [facility], were you homeless or living in a assisted (including now)? 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 Souza about another pt Peter/ Further follow-up needed? Yes Return Method of Communication:Phone call Additional Information:N/A documented in this encounter Plan of Treatment Upcoming Encounters Date Type Department Care Team (Late st Contact Info) Description 01/25/2025 12:15 PM EDT Office Visit [facility] [address] [place] [address] Melecio Dubois MD [address] [facility] [address] [place] [address] 02/13/2025 9:40 AM EST Office Visit SEP H&V [address] [phone] Michael Delgado MD [address] [place] [address] 07/09/2025 2:30 PM EDT Office Visit SEP H&V [address] [address] Michael Delgado MD [address] [place] [address] 11/28/2025 1:30 PM EDT Office Visit [facility] [address] [place] [address] [address] [place] [address] 11/28/2025 2:00 PM EDT Office Visit [facility] [address] [place] [address] [place] [address] Ramon Mandel MD [address] [place] [phone] documented as of this encounter Goals Goal [...] filedocumented in this encounter Additional Health Concerns Assessment Noted Time A fall risk assessment has been complete d for the patient 10/02/2024 1:23 PM EDT documented as of this encounter Care Teams Flake Or Shred Roll Operator Relationship Specialty Start Date End Date Jose Maria Souza MD [address] [place] [address] PCP - General Family Medicine 07/31/18 documented as of this encounter
[2025-01-25 10:47] LABS: Hematocrit 42.8 % (37.0-47.0); Hemoglobin 13.7 g/dL (12.2-16.2); Immature Granulocytes % 0.3 %; Mean Corpuscular HGB Conc 32.0 g/dL (31.8-35.4); Mean Corpuscular Hemoglobin 28.8 pg (27.0-31.2); Mean Corpuscular Volume 89.9 fl (81-99); Nucleated Red Blood Cells % 0 %; Platelet Count 269 K/mm3 (142-424); Red Blood Count 4.76 M/mm3 (4.20-5.40); Red Cell Distribution Width-SD 48.6 fL; White Blood Count 15.4 K/mm3 (4.8-10.8)
[2025-01-25 10:51] LABS: Albumin Level 3.9 g/dl (3.5-5.0); Chloride 98 mmol/L (98-107); Potassium 3.9 mmoL/L (3.5-5.1); Sodium 135 mmol/L (136-145)
[2025-01-25 10:53] LABS: Blood Urea Nitrogen 13 mg/dl (7-17); Creatinine,Serum 0.90 mg/dl (0.52-1.04); Estimated Glomerular Filt Rate 62 ml/min (>60); GFR (African American) 75 ML/MIN (>60)
[2025-01-25 10:54] LABS: Alanine Aminotransferase 16 U/L (12-78); Albumin/Globulin Ratio 1.5 (1.1-1.8); Alkaline Phosphatase 140 U/L (38-126); Anion Gap 10.9 mEq/L (5-15); Aspartate Amino Transferase 19 U/L (14-36); Bilirubin,Total 0.3 mg/dl (0.2-1.3); Calcium 9.1 mg/dl (8.4-10.2); Carbon Dioxide 30 mmol/L (22.0-30.0); Globulin 2.6 g/dL (1.3-3.2); Glucose 148 mg/dl (74-100); Total Protein,Serum 6.5 g/dl (6.3-8.2)
--- NOTE | 2025-01-25 10:55 | [facility].EDCP ---
Discharge Plan Disposition Patient Disposition: Admitted Prescriptions Prescriptions: No Action hydroxyzine pamoate 25 mg capsule 25 mg PO Q8H PRN (Reason: itching) Qty: 20 0RF triamcinolone acetonide 0.1 % cream 1 applic topical BID PRN (Reason: itching) Qty: 80 0RF fluoxetine 40 mg Capsule 40 mg PO DAILY furosemide [Lasix] 20 mg Tablet 20 mg PO BID nitrofurantoin monohyd/m-cryst [Macrobid] 100 mg Capsule 100 mg PO BID Rx Instructions: must administer with a meal/food Eliquis 5 mg Tablet 5 mg PO BID tizanidine 4 mg Tablet 4 mg PO Q8HP PRN (Reason: Muscle Spasm) allopurinol 100 mg Tablet 100 mg PO DAILY gabapentin 300 mg Capsule 300 mg PO BID PRN (Reason: Pain) aspirin 81 mg Tablet,Chewable 81 mg PO DAILY atorvastatin 10 mg Tablet 10 mg PO HS lisinopril 10 mg Tablet 10 mg PO BID metoprolol tartrate 50 mg Tablet 50 mg PO BID buspirone 15 mg Tablet 15 mg PO BID theophylline 400 mg tablet extended release 24 hr 400 mg PO DAILY potassium chloride 20 mEq tablet,ER particles/crystals 20 meq PO DAILY montelukast 10 mg Tablet 10 mg PO PM calcium carbonate-vitamin D3 [Oyster Shell + D3] 250 mg-3.125 mcg (125 unit) Tablet 2 tab PO DAILY Trelegy Ellipta 200-62.5-25 mcg blister with device 1 ea INHALATION DAILY hydrocodone-acetaminophen 5-325 mg Tablet 1 tab PO Q8HP PRN (Reason: Severe Pain (7-10)) 3 Days Qty: 9 0RF pantoprazole 40 mg tablet,delayed release (DR/EC) 40 mg PO DAILY 30 Days Qty: 30 0RF Referrals Follow up/Referrals: Deuce Souza MD [Primary Care Provider, Medical] - See instructions Clinical Impressions Clinical Impression: Angina pectoris, unstable, Incidental pulmonary nodule Print Language Print Language: Occitan Discharge ED Provider: Gavino Light HPI General Chief Complaint: Shortness of Breath/Dyspnea Stated Complaint: SOA Time Seen by Provider: 01/25/25 10:34 History of Present Illness HPI narrative: Patient is a 69-year-old female with past medical history of asthma, chronic smoker on nocturnal CPAP, atrial fibrillation status post pacemaker placement on anticoagulation, gout, hypertension, hyperlipidemia who presents emergency department for evaluation of chest pain and shortness of breath. It awoke her at 4 AM this morning. Patient has a chronic cough at baseline which is a little bit worse over the last week. Chest pain is substernal right sternal border radiating through to her right shoulder blade. No syncope no trauma. Due to persistent chest pain refractory to her 's lxnd-ghg-obwwonr narcotics she presents here for continued evaluation. No other acute complaints at this time continues to smoke. No abdominal pain. Please note that above description of symptoms, in this electronic medical record under categorization of recalled from ER triage doctor by RN are reflective of an initial nursing assessment, however, is not reflective of my full history and physical exam that was personally taken and clarified. Consequentially, this preceding description of symptoms, which may include the patient's categorized chief complaint in the EMR, do not reflect my personal clinical impression, and the ultimate description of history of present illness and patient stated complaints should be deferred to this section of the note. Unless stated otherwise or congruent with this section of the note, additional signs, symptoms, or incongruence should be interpreted as inaccurate with my clinical impression. Related Data Home Medications ?Medication ?Instructions ?Recorded ?Confirmed allopurinol 100 mg tablet 100 mg PO DAILY gout 01/11/23 01/11/23 apixaban 5 mg tablet (Eliquis) 5 mg PO BID Blood Thinner/Afib 01/11/23 01/11/23 Held on 01/12/23. Instructions: Please hold until further discussion with patient access coordinator aspirin 81 mg chewable tablet 81 mg PO DAILY heart health 01/11/23 01/11/23 atorvastatin 10 mg tablet 10 mg PO HS Cholesterol 01/11/23 01/11/23 buspirone 15 mg tablet 15 mg PO BID Anxiety 01/11/23 01/11/23 calcium 250 mg (as 2 tab PO DAILY Supplement 01/11/23 01/11/23 carbonate)-vitamin D3 3.125 mcg (125 unit) tablet (Oyster Shell + D3) fluoxetine 40 mg capsule 40 mg PO DAILY Mood 01/11/23 01/11/23 fluticasone fur. 200 mcg-umeclid 1 ea inhalation DAILY Breathing 01/11/23 01/11/23 62.5 mcg-vilant 25 mcg Problems inhalat.powder (Trelegy Ellipta) furosemide 20 mg tablet (Lasix) 20 mg PO BID Fluid 01/11/23 01/11/23 gabapentin 300 mg capsule 300 mg PO BID PRN Pain 01/11/23 01/11/23 lisinopril 10 mg tablet 10 mg PO BID High Blood Pressure 01/11/23 01/11/23 metoprolol tartrate 50 mg tablet 50 mg PO BID High Blood Pressure 01/11/23 01/11/23 montelukast 10 mg tablet 10 mg PO PM Allergy Symptoms 01/11/23 01/11/23 nitrofurantoin 100 mg PO BID Infection 01/11/23 01/11/23 monohydrate/macrocrystals 100 mg capsule (Macrobid) potassium chloride 20 mEq 20 meq PO DAILY Supplement 01/11/23 01/11/23 tablet,extended release(part/cryst) theophylline 400 mg 400 mg PO DAILY Asthma 01/11/23 01/11/23 tablet,extended release 24 hr tizanidine 4 mg tablet 4 mg PO Q8HP PRN Muscle Spasm 01/11/23 01/11/23 Previous Rx's ?Medication ?Instructions ?Recorded hydrocodone 5 mg-acetaminophen 325 1 tab PO Q8HP PRN Severe Pain 01/12/23 mg tablet (7-10) 3 days #9 tabs pantoprazole 40 mg tablet,delayed 40 mg PO DAILY 30 days #30 tabs 01/12/23 release hydroxyzine pamoate 25 mg capsule 25 mg PO Q8H PRN itching #20 caps 09/13/24 triamcinolone acetonide 0.1 % 1 applic topical BID PRN itching 09/13/24 topical cream #80 grams Allergies Allergy/AdvReac Type Severity Reaction Status Date / Time Penicillins Allergy Verified 01/11/23 08:19 Sulfa (Sulfonamide Allergy Verified 01/11/23 08:19 Antibiotics) [facility] Disclaimer: The information contained in this section may have been updated after the patient was seen, as this information can be updated by other users. Medical History A-fib Allergic rhinitis Arthritis Gout High blood pressure High cholesterol History of asthma Neuropathy Surgical History History of hernia surgery S/P cholecystectomy S/P partial hysterectomy Social History Smoking Status: Current every day smoker alcohol intake: never substance use type: denies use current occupational status: unemployed Travel in the last 8 weeks?: None Have you lived/traveled outside US in past 30 days?: No Contact w/someone who lives/traveled outside US past 30 days?: No Exposure to someone with infectious disease in past 14 days?: No Do you have a fever (greater than 100.4 F or 38 C)?: No Have you tested positive for COVID-19?: No Exposed to someone with COVID-19 in past 14 days?: No Do you have a sore throat?: No Do you have a cough?: No Do you have any weakness?: No Do you have any diarrhea?: No Are you experiencing any unusual bleeding?: No Do you have any muscle aches/pain?: No Do you have any abdominal pain?: No Are you experiencing loss of taste or smell?: No Other Medical History Have you received the Flu Vaccine for this season: No Have you received the Pneumonia Vaccine: No ROS Obtained: Yes Systems reviewed as appropriate & no additional complaints except as documented Physical Exam General General appearance: alert Comment: Pursed lip breathing in bed Head Head exam: atraumatic and normocephalic Eye Eye exam: Present PERRL and EOMI ENT ENT exam: Present mucous membranes moist Neck Neck exam: Present normal inspection Chest Chest inspection: Present normal inspection and symmetric chest wall rise Respiratory Respiratory exam: Present normal lung sounds bilaterally and accessory muscle use; Absent respiratory distress, wheezes or stridor Cardiovascular Cardiovascular exam: Present regular rate and normal rhythm Abdominal Exam Abdominal exam: Present soft; Absent tenderness Extremities Exam Extremities exam: Present other (Mild nonpitting edema BLE mid ambrocio) Neurological Exam Neurological exam: Present alert and CN II-XII intact Psychiatric Psychiatric exam: Present normal affect Skin Skin exam: Present warm and dry HEART Score HEART Score HEART Score assessment performed?: Yes History (anamnesis): Highly suspicious ECG: Non-specific disturbance Age: >65 years Risk factors: 3 or more risk factors Troponin: </= normal limit HEART Score: 7 Critical Care Critical Care Time Critical Care Time: No Medical Decision Making Emiliano Inquiry Pt receiving controlled substance: No Vital Signs Vital Signs: 01/25/25 10:36 01/25/25 10:36 01/25/25 11:00 Temperature 98.1 F 98.1 F Temperature Source Oral Oral Pulse Rate 98 H 83 Pulse Rate [Right] 98 H Respiratory Rate 22 22 20 Blood Pressure 117/57 L 135/54 L Blood Pressure [Right Arm] 117/57 L Blood Pressure Mean Blood Pressure Mean [Right Arm] 77 Blood Pressure Source Automatic Cuff Blood Pressure Source [Right Arm] Automatic Cuff Blood Pressure Position Supine Blood Pressure Position [Right Arm] Supine 02 Sat by Pulse Oximetry 94 L 94 L 95 Oxygen Delivery Method Nasal Cannula Nasal Cannula Oxygen Flow Rate (LPM) 2 2 01/25/25 11:04 01/25/25 11:24 01/25/25 11:30 Temperature Temperature Source Pulse Rate 98 H 91 H Pulse Rate [Right] Respiratory Rate 27 H Blood Pressure 116/64 107/53 L Blood Pressure [Right Arm] Blood Pressure Mean 71 Blood Pressure Mean [Right Arm] Blood Pressure Source Blood Pressure Source [Right Arm] Blood Pressure Position Blood Pressure Position [Right Arm] 02 Sat by Pulse Oximetry 94 L 95 95 Oxygen Delivery Method Nasal Cannula Oxygen Flow Rate (LPM) 2 01/25/25 12:00 01/25/25 12:30 01/25/25 13:00 Temperature Temperature Source Pulse Rate 90 85 Pulse Rate [Right] Respiratory Rate 21 Blood Pressure 115/50 L 120/60 103/59 L Blood Pressure [Right Arm] Blood Pressure Mean Blood Pressure Mean [Right Arm] Blood Pressure Source Blood Pressure Source [Right Arm] Blood Pressure Position Blood Pressure Position [Right Arm] 02 Sat by Pulse Oximetry 94 L 94 L 95 Oxygen Delivery Method Nasal Cannula Nasal Cannula Nasal Cannula Oxygen Flow Rate (LPM) 2 2 2 01/25/25 13:30 01/25/25 14:00 01/25/25 14:30 Temperature Temperature Source Pulse Rate 92 H 87 87 Pulse Rate [Right] Respiratory Rate 17 22 13 Blood Pressure 100/70 L 116/58 L 125/59 L Blood Pressure [Right Arm] Blood Pressure Mean Blood Pressure Mean [Right Arm] Blood Pressure Source Blood Pressure Source [Right Arm] Blood Pressure Position Blood Pressure Position [Right Arm] 02 Sat by Pulse Oximetry 95 95 93 L Oxygen Delivery Method Nasal Cannula Nasal Cannula Nasal Cannula Oxygen Flow Rate (LPM) 2 2 2 Lab Data Labs: Lab Results 01/25/25 10:35: WBC 15.4 H, RBC 4.76, Hgb 13.7, Hct 42.8, MCV 89.9, MCH 28.8, MCHC 32.0, RDW 14.6, Plt Count 269, MPV 11.0 H, Neut % (Auto) 72.0, Lymph % (Auto) 14.2, [place] % (Auto) 9.9 H, Eos % (Auto) 3.2, Baso % (Auto) 0.4, Neut # (Auto) 11.1 H, Lymph # (Auto) 2.2, [place] # (Auto) 1.5 H, Eos # (Auto) 0.5 H, Baso # (Auto) 0.1, Sodium 135 L, Potassium 3.9, Chloride 98, Carbon Dioxide 30, Anion Gap 10.9, BUN 13, Creatinine 0.90, Estimated GFR 62, Est GFR ( Amer) 75, Glucose 148 H, Calcium 9.1, Total Bilirubin 0.3, AST 19, ALT 16, Alkaline Phosphatase 140 H, Troponin I < 0.01, NT-Pro-B Natriuret Pep 39.4, Total Protein 6.5, Albumin 3.9, Globulin 2.6, Albumin/Globulin Ratio 1.5 01/25/25 10:59: VBG pH 7.34, VBG pCO2 52.7 H, VBG pO2 48.5 H, VBG HCO3 27.5, VBG Total CO2 29.1 H, VBG O2 Saturation 84.4 H, VBG Base Excess 1.6, VBG Lactic Acid 2.4 H 01/25/25 11:21: SARS-CoV-2 (PCR) Not detected, Influenza A Untype (PCR) Not detected, Influenza Type B (PCR) Not detected 01/25/25 13:29: Troponin I < 0.01 01/25/25 10:35 01/25/25 10:35 Response Orders (Tests/Meds): ED MEDICATIONS Generic Name Dose Route Start Last Admin Trade Name Freq PRN Reason Stop Dose Admin Acetaminophen 650 mg 01/25/25 14:53 Acetaminophen 325mg Tab PO 02/24/25 14:52 Q4HP PRN Fever or Mild Pain (1-3) Sodium Chloride 10 ml 01/25/25 11:20 01/25/25 11:21 Sodium Chloride 0.9% 10ml Syr (Rad Only) IV 02/24/25 11:19 10 ml NEEDED PRN Administration Maintain IV Site Discontinued Medications Generic Name Dose Route Start Last Admin Trade Name Ayan PRN Reason Stop Dose Admin Aspirin 324 mg 01/25/25 10:41 01/25/25 11:00 Aspirin 81mg Chewable Tablet PO 01/25/25 10:42 324 mg ONCE ONE Administration Iopamidol 80 ml 01/25/25 11:20 01/25/25 11:21 Iopamidol-370 (76%);100ml Bottle IV 01/25/25 11:21 80 ml ONCE ONE Administration Morphine Sulfate 4 mg 01/25/25 10:41 01/25/25 11:00 Morphine 4mg/Ml Syringe IV 01/25/25 10:42 4 mg ONCE ONE Administration Nitroglycerin 0.4 mg 01/25/25 10:41 01/25/25 11:00 Nitroglycerin 0.4mg Sl Tablet SL 01/25/25 10:42 0.4 mg ONCE ONE Administration Sodium Chloride 50 ml 01/25/25 11:20 01/25/25 11:21 0.9 % Sodium Chloride 50 Ml Vial IV 01/25/25 11:21 50 ml ONCE ONE Administration ORDERS Category Date Time Status CT angio chest - dissection Stat Cat Scan 01/25/25 10:41 Completed POCUS Point of Care (ER Only) Stat Exams 01/25/25 10:41 Completed BNP [NT Pro Brain Natriuretic Pep.] Stat Lab 01/25/25 10:35 Completed CBC w/Auto Diff [Complete Blood Count Auto Diff] Stat Lab 01/25/25 10:35 Completed CMP [Comprehensive Metabolic Panel] Stat Lab 01/25/25 10:35 Completed Complete Blood Count Auto Diff AMLAB Lab 01/26/25 06:00 Ordered Comprehensive Metabolic Panel AMLAB Lab 01/26/25 06:00 Ordered HIV Combo Stat Lab 01/25/25 10:59 Ordered Hepatitis C Ab Qual. W/ RFX Stat Lab 01/25/25 10:59 Ordered Magnesium AMLAB Lab 01/26/25 06:00 Ordered Rapid PCR Covid and Flu A/B Stat Lab 01/25/25 11:21 Completed Trop I [Troponin I] Stat Lab 01/25/25 10:35 Completed Troponin I Q3H Lab 01/25/25 13:29 Completed Troponin I Q3H Lab 01/25/25 16:45 Ordered VBG [Venous Blood Gas] Stat RT 01/25/25 10:59 Completed ECG Data Tracing #1: ECG Narrative: Independently interpreted by me rate is 96, rhythm is a paced, no ST elevation in anatomical contiguous leads, QTc 159. MDM Narrative Medical Decision Narrative: In summary patient is a 69-year-old female with past medical history of scrota above presents emergency department for evaluation of chest pain radiating through to her shoulder blade. Patient is hemodynamically stable nontoxic-appearing upon arrival, afebrile, slight tachypnea and pursed lip breathing in bed. Interestingly patient has good air movement no wheezing, no significant bronchoconstriction. Differential diagnosis includes ACS, aortic dissection, CHF, mild COPD exacerbation, pleurisy, among others. Patient has previous cholecystectomy no concern for cholecystitis. Initial inventions include aspirin, nitroglycerin, morphine, Zofran. Crystalloid resuscitation was considered but patient appears euvolemic to slightly hypervolemic will be deferred. Breathing treatments were considered however patient has good air movement will be deferred. Initial workup reviewed by me leukocytosis of 15.4, compensated acid-base status no critical electrolyte abnormality or AWILDA initial troponin undetectably low viral swab negative. CTA chest no evidence of aortic dissection or PE, there is a 9 mm left upper lobe nodule which is stable since previous CT recommend follow-up from outpatient basis. Upon repeat evaluation patient continued to have chest pain. Given this the case was discussed with cardiology who agrees patient will benefit from admission for unstable angina. The case was subsequently discussed with hospital medicine regarding management they will admit the patient to her service for continued evaluation at this time.
[2025-01-25] MEDS: MORPHINE 4MG/ML SYRINGE 4 MG IV ×2 (11:00→15:17)
[2025-01-25] MEDS: ASPIRIN 81MG CHEWABLE TABLET 324 MG PO (11:00)
[2025-01-25] MEDS: NITROGLYCERIN 0.4MG SL TABLET 0.4 MG SL (11:00)
[2025-01-25 11:01] LABS: VBG HCO3 27.5 mmol/L (23-30); VBG PH 7.34 mmol/L (7.31-7.41); VBG PO2 48.5 mmol/L (28-40)
[2025-01-25 11:04] LABS: NT Pro Brain Natriuretic Pep. 39.4 pg/mL (0-125)
[2025-01-25 11:06] LABS: Lactate Venous 2.4 mmol/L (0.4-2.0); VBG PCO2 52.7 mmol/L (35-51)
[2025-01-25 11:18] LABS: Troponin I < 0.01 ng/ml (0.00-0.034)
[2025-01-25] MEDS: SODIUM CHLORIDE 0.9% 10ML SYR (RAD ONLY) 10 ML IV (11:21)
[2025-01-25] MEDS: 0.9 % SODIUM CHLORIDE 50 ML VIAL IV (11:21)
[2025-01-25] MEDS: IOPAMIDOL-370 (76%);100ML BOTTLE 80 ML IV (11:21)
[2025-01-25 11:26] LABS: Coronavirus 19, PCR Not Detected (NotDetected); Influenza A, PCR Not Detected (NotDetected); Influenza B, PCR Not Detected (NotDetected)
[2025-01-25 14:10] LABS: Troponin I < 0.01 ng/ml (0.00-0.034)
--- NOTE | 2025-01-25 14:59 | EXP.HP ---
History of Present Illness *Admission Date: 01/25/25 *Reason for visit:: dyspnea, SOA *History of present illness: Ms. Coleman is a 69-year-old female with history of asthma, chronic smoker, on oxygen at home 2 L at night, A-fib status post pacemaker placement on anticoagulation. Also has hypertension and hyperlipidemia. Presented with complaint of chest pain and shortness of breath. Woke this morning at 4 with pain on the right side of her chest. Has been having cough for the past 2 days. Pain radiates to her right back. No syncope, nausea, vomiting. Afebrile. Alert and oriented x 4. On workup in the ER, patient has negative initial troponin. CT unremarkable for pneumonia. Given her multiple comorbidities however, deemed high risk. Requested admission by medicine for monitoring overnight. On my evaluation, she appears comfortable on 2 L oxygen. Is in minimal distress. Pain is somewhat better with morphine. Points to the right side of her chest. Palpable nodule/trigger point in right rhomboid. Upon massage, felt somewhat better. Feels more comfortable 2 L oxygen on. Alert and oriented x 4. [facility] Disclaimer: The information contained in this section may have been updated after the patient was seen, as this information can be updated by other users. Medical History Allergic rhinitis High cholesterol High blood pressure Gout Arthritis Neuropathy History of asthma A-fib Surgical History History of hernia surgery S/P cholecystectomy S/P partial hysterectomy Family History Other Family history of acute congestive heart failure Family history of cancer Heart attack Social History Smoking Status: Current every day smoker alcohol intake: never substance use type: denies use current occupational status: unemployed Travel in the last 8 weeks?: None Have you lived/traveled outside US in past 30 days?: No Contact w/someone who lives/traveled outside US past 30 days?: No Exposure to someone with infectious disease in past 14 days?: No Do you have a fever (greater than 100.4 F or 38 C)?: No Have you tested positive for COVID-19?: No Exposed to someone with COVID-19 in past 14 days?: No Do you have a sore throat?: No Do you have a cough?: No Do you have any weakness?: No Do you have any diarrhea?: No Are you experiencing any unusual bleeding?: No Do you have any muscle aches/pain?: No Do you have any abdominal pain?: No Are you experiencing loss of taste or smell?: No Other Medical History Have you received the Flu Vaccine for this season: No Have you received the Pneumonia Vaccine: No Review of Systems Review of Systems Review of systems (narrative): 14 point review of systems performed, pertinent positives and negatives as per [facility] Meds Home Medications and Allergies Home Medications ?Medication ?Instructions ?Recorded ?Confirmed ?Type aspirin 81 mg chewable tablet 81 mg PO DAILY 01/11/23 01/25/25 History fluoxetine 40 mg capsule 40 mg PO DAILY 01/11/23 01/25/25 History lisinopril 10 mg tablet 10 mg PO BID 01/11/23 01/25/25 History theophylline 400 mg 400 mg PO DAILY 01/11/23 01/25/25 History tablet,extended release 24 hr tizanidine 4 mg tablet 4 mg PO DAILYP PRN Muscle Spasm 01/11/23 01/25/25 History apixaban 5 mg tablet (Eliquis) 5 mg PO BID 01/25/25 01/25/25 History New Prescriptions to Start Prescriptions: Allergies Allergy/AdvReac Type Severity Reaction Status Date / Time Penicillins Allergy Verified 01/11/23 08:19 Sulfa (Sulfonamide Allergy Verified 01/11/23 08:19 Antibiotics) Exam Data for Last 24 hours Vital signs and Labs for Last 24 Hours: Temp Pulse Resp BP Pulse Ox O2 Del Method O2 Flow Rate 98.1 F 87 13 125/59 L 93 L Nasal Cannula 2 01/25/25 10:36 01/25/25 14:30 01/25/25 14:30 01/25/25 14:30 01/25/25 14:30 01/25/25 14:30 01/25/25 14:30 Laboratory Results - last 24 hr 01/25/25 10:35: WBC 15.4 H, RBC 4.76, Hgb 13.7, Hct 42.8, MCV 89.9, MCH 28.8, MCHC 32.0, RDW 14.6, Plt Count 269, MPV 11.0 H, Neut % (Auto) 72.0, Lymph % (Auto) 14.2, [place] % (Auto) 9.9 H, Eos % (Auto) 3.2, Baso % (Auto) 0.4, Neut # (Auto) 11.1 H, Lymph # (Auto) 2.2, [place] # (Auto) 1.5 H, Eos # (Auto) 0.5 H, Baso # (Auto) 0.1, Sodium 135 L, Potassium 3.9, Chloride 98, Carbon Dioxide 30, Anion Gap 10.9, BUN 13, Creatinine 0.90, Estimated GFR 62, Est GFR ( Amer) 75, Glucose 148 H, Calcium 9.1, Total Bilirubin 0.3, AST 19, ALT 16, Alkaline Phosphatase 140 H, Troponin I < 0.01, NT-Pro-B Natriuret Pep 39.4, Total Protein 6.5, Albumin 3.9, Globulin 2.6, Albumin/Globulin Ratio 1.5 01/25/25 10:59: VBG pH 7.34, VBG pCO2 52.7 H, VBG pO2 48.5 H, VBG HCO3 27.5, VBG Total CO2 29.1 H, VBG O2 Saturation 84.4 H, VBG Base Excess 1.6, VBG Lactic Acid 2.4 H 01/25/25 11:21: SARS-CoV-2 (PCR) Not detected, Influenza A Untype (PCR) Not detected, Influenza Type B (PCR) Not detected 01/25/25 13:29: Troponin I < 0.01 I & O for Last 24 hours: Intake & Output 01/22/25 01/23/25 01/24/25 01/25/25 23:59 23:59 23:59 23:59 Weight 83.007 kg Intake & Output 01/08/23 01/09/23 01/10/23 01/11/23 23:59 23:59 23:59 23:59 Weight 101.605 kg Constitutional Constitutional: mild distress, obese, chronically ill appearing and cooperative *Routine HEENT Exam Head: Present normocephalic Eye: Present EOMI and PERRL ENT: Present mucous membranes moist *Routine Neck Exam Neck: Present supple; Absent lymphadenopathy *Routine Respiratory Exam Respiratory: Present prolonged expiratory phase and wheezes; Absent rhonchi or crackles *Routine Cardiovascular Exam Cardiovascular: Present RRR *Routine Abdominal Exam Abdominal: Present soft and normoactive bowel sounds; Absent tenderness or distended *Routine Rectal Exam Rectal:: deferred *Routine Genitalia Exam Genitalia:: deferred *Routine Extremities Exam Extremities: Absent cyanosis, clubbing or edema Routine Back/Spine/Pelvis Exam Back/Spine: Present muscle spasm (Right rhomboid/paraspinal. Source of a lot of her back and chest pain per exam) *Routine Skin Exam Skin: Present intact and warm; Absent rash *Routine Neurological Exam Neurological: Present alert, oriented X3 and moving all extremities; Absent altered mental status Assessment and Plan *Assessment and plan (1) COPD (chronic obstructive pulmonary disease): Status: Chronic Qualifiers: COPD type: COPD with acute exacerbation Qualified Code(s): J44.1 - Chronic obstructive pulmonary disease with (acute) exacerbation Category: Medical Code(s): J44.9 - Chronic obstructive pulmonary disease, unspecified (2) Angina pectoris, unstable: Status: Acute Category: Medical Code(s): I20.0 - Unstable angina (3) Class 2 obesity: Status: Chronic Category: Medical Code(s): E66.812 - Obesity, class 2 (4) High blood pressure: Status: Chronic Qualifiers: Hypertension type: primary hypertension Qualified Code(s): I10 - Essential (primary) hypertension Category: Medical Code(s): I10 - Essential (primary) hypertension Plan 69-year-old female who presented with chest pain. Radiates to her right back. Discussed case with ER physician, given concern for high risk chest pain requested admission. Admitted for observation. On my exam, chest pain reproducible with radiation to her chest on palpation of the right rhomboid. Initial troponin negative. EKG with no ST changes. Concern for COPD exacerbation. Will monitor overnight. Problems addressed as follows: COPD with exacerbation Chest pain -Goal sats greater 90%, continue supplemental oxygen, 2 L continuous. Wean as tolerated, baseline 2 L at night only. - DuoNebs every 6 hours scheduled, budesonide twice daily, doxycycline 100 mg twice daily - Negative for flu and COVID - Chest CT per my review with no focal consolidation or airspace disease - Theophylline 40 mg daily per home regimen - White count elevated at 15. Repeat CBC, CMP, magnesium ordered for the morning. Patient's presentation most consistent with a viral illness. Will treat empirically for COPD exacerbation as above - Initial troponin less than 0.01, repeat pending. BNP normal at 39. EKG with no ischemic changes Depression: Continue home Prozac 40 mg daily A-fib: Well-controlled with rate, continue Eliquis 5 mg twice daily Hypertension: Holding lisinopril as she is normotensive, reevaluate in the morning Muscle spasm: Continue tizanidine 4 mg increased to 3 times a day as needed, Toradol for moderate pain. 15 mg every 6 hours as needed Full code Eliquis 5 mg twice daily Regular diet
--- NOTE | 2025-01-25 15:00 | PC.NURSE ---
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
[2025-01-25 15:06] LABS: Reflex Lactic Add Lactic Reflex
--- NOTE | 2025-01-25 15:17 | PC.NURSE ---
Called report to PHONG Somers.
[2025-01-25] MEDS: KETOROLAC 30MG/ML VIAL 30 MG IV (15:18)
--- NOTE | 2025-01-25 15:18 | HMH.PHAINT1 ---
Pharmacy Intervention Comments: MEDICATION RECONCILIATION COMPLETED ON PATIENT USING EXTERNAL FILL HISTORY FROM PHARMACY AND [facility]ALL REPORT. -MICHAEL SWIFT, [place]
--- NOTE | 2025-01-25 16:17 | PC.NURSE ---
pt arrived to the floor via stretcher
[2025-01-25 16:22] LABS: Hepatitis C Ab Qual. W/ RFX NEGATIVE (Negative)
[2025-01-25 17:03] LABS: Lactic Acid Follow Up (RFLX 1) 1.4 mmol/L (0.7-2.1)
[2025-01-25 17:16] LABS: Troponin I < 0.01 ng/ml (0.00-0.034)
[2025-01-25] MEDS: DOXYCYCLINE HYCL 100 MG TABLET PO (20:56)
[2025-01-25] MEDS: APIXABAN 5MG TABLET 5 MG PO (20:56)
[2025-01-25] MEDS: IPRATROPIUM/ALBUTEROL 3 ML NEB IH (23:04)
[2025-01-26] VITALS: BP 105/54; PULSE 85; RESP 17; TEMP 37.1; O2SAT 95
[2025-01-26 00:04] VITALS: PULSE 117
[2025-01-26 04:00] VITALS: BP 122/48; PULSE 77; PULSE 78; RESP 18; TEMP 36.8; O2SAT 97; BMI 29.0
[2025-01-26] MEDS: IPRATROPIUM/ALBUTEROL 3 ML NEB IH (06:22)
[2025-01-26] MEDS: BUDESONIDE 0.5MG/2ML NEB 0.5 MG IH (06:22)
[2025-01-26 06:23] VITALS: PULSE 76; PULSE 80; O2SAT 96
--- NOTE | 2025-01-26 07:01 | PC.NURSE ---
pt began coughing and then c/o pain to left chest early in the shift. administered cough medicine and treated pain per jun. pt slept all night with no complaints
--- NOTE | 2025-01-26 07:40 | EXP.DC.SUM ---
General Admission date:: 01/25/25 Discharge date: 01/26/25 HPI HPI HPI: Ms. Coleman is a 69-year-old female with history of asthma, chronic smoker, on oxygen at home 2 L at night, A-fib status post pacemaker placement on anticoagulation. Also has hypertension and hyperlipidemia. Presented with complaint of chest pain and shortness of breath. Woke this morning at 4 with pain on the right side of her chest. Has been having cough for the past 2 days. Pain radiates to her right back. No syncope, nausea, vomiting. Afebrile. Alert and oriented x 4. On workup in the ER, patient has negative initial troponin. CT unremarkable for pneumonia. Given her multiple comorbidities however, deemed high risk. Requested admission by medicine for monitoring overnight. On my evaluation, she appears comfortable on 2 L oxygen. Is in minimal distress. Pain is somewhat better with morphine. Points to the right side of her chest. Palpable nodule/trigger point in right rhomboid. Upon massage, felt somewhat better. Feels more comfortable 2 L oxygen on. Alert and oriented x 4. Hospital Course Hospital Course Hospital Course: 69-year-old female who presented with chest pain. Radiates to her right back. Discussed case with ER physician, given concern for high risk chest pain requested admission. Admitted for observation. On my exam, chest pain reproducible with radiation to her chest on palpation of the right rhomboid. Initial troponin negative. EKG with no ST changes. Concern for COPD exacerbation. Monitor overnight. Did well. Stable on baseline oxygen. Able to wean to room air by morning. Stable for discharge home to complete outpatient management of COPD exacerbation. Problems addressed as follows: COPD with exacerbation Chest pain, musculoskeletal -Presented with chest discomfort. Shortness of breath and needing 2 L oxygen continuously. Usually wears only 2 L at night at baseline at home. Started on DuoNebs every 6 hours scheduled budesonide twice daily. No significant wheeze on exam. Started on doxycycline 100 mg twice daily and prednisone 40 mg daily for COPD exacerbation. Respiratory panel negative for flu and COVID. By morning she was feeling significantly better. Chest CT showed no focal consolidation or pneumonia/airspace disease. White count improved from 15-10.6. Given her clinical improvement and stability, will discharge home to continue home regimen including her theophylline. She has not home. CPAP at night per home regimen. Depression: Continue home Prozac 40 mg daily A-fib: Well-controlled with rate, continue Eliquis 5 mg twice daily Hypertension: Holding lisinopril as she is normotensive, reevaluate in the morning Muscle spasm: Continue tizanidine 4 mg increased to 3 times a day as needed, trigger point in right upper back. Likely the source of her pain as it improved with massage and was present on exam. Follow-up with PCP within the next 1 to 2 weeks Exam Data for Last 24 hours Vital signs and Labs for Last 24 Hours: Temp Pulse Resp BP Pulse Ox O2 Del Method O2 Flow Rate 98.2 F 76 18 122/48 L 96 CPAP 2 01/26/25 04:00 01/26/25 06:23 01/26/25 04:00 01/26/25 04:00 01/26/25 06:23 01/26/25 06:23 01/26/25 06:23 Laboratory Results - last 24 hr 01/25/25 10:35: WBC 15.4 H, RBC 4.76, Hgb 13.7, Hct 42.8, MCV 89.9, MCH 28.8, MCHC 32.0, RDW 14.6, Plt Count 269, MPV 11.0 H, Neut % (Auto) 72.0, Lymph % (Auto) 14.2, Amador % (Auto) 9.9 H, Eos % (Auto) 3.2, Baso % (Auto) 0.4, Neut # (Auto) 11.1 H, Lymph # (Auto) 2.2, Am[place] # (Auto) 1.5 H, Eos # (Auto) 0.5 H, Baso # (Auto) 0.1, Sodium 135 L, Potassium 3.9, Chloride 98, Carbon Dioxide 30, Anion Gap 10.9, BUN 13, Creatinine 0.90, Estimated GFR 62, Est GFR ( Amer) 75, Glucose 148 H, Calcium 9.1, Total Bilirubin 0.3, AST 19, ALT 16, Alkaline Phosphatase 140 H, Troponin I < 0.01, NT-Pro-B Natriuret Pep 39.4, Total Protein 6.5, Albumin 3.9, Globulin 2.6, Albumin/Globulin Ratio 1.5, HCV Ab LOCO w/Rflx PCR Qn Negative, HIV Ag/Ab Combo Qual Negative 01/25/25 10:59: VBG pH 7.34, VBG pCO2 52.7 H, VBG pO2 48.5 H, VBG HCO3 27.5, VBG Total CO2 29.1 H, VBG O2 Saturation 84.4 H, VBG Base Excess 1.6, VBG Lactic Acid 2.4 H 01/25/25 11:21: SARS-CoV-2 (PCR) Not detected, Influenza A Untype (PCR) Not detected, Influenza Type B (PCR) Not detected 01/25/25 13:29: Troponin I < 0.01 01/25/25 16:45: Lactate 1.4, Troponin I < 0.01 I & O for Last 24 hours: Intake & Output 01/23/25 01/24/25 01/25/25 01/26/25 23:59 23:59 23:59 23:59 Intake Total 120 / 120 Output Total 0 / 0 Balance 120 / 120 Weight 81.703 kg 81.919 kg Constitutional Constitutional: no acute distress, obese and chronically ill appearing *Routine HEENT Exam Head: Present normocephalic Eye: Present EOMI and PERRL ENT: Present mucous membranes moist *Routine Neck Exam Neck: Present supple; Absent lymphadenopathy *Routine Respiratory Exam Respiratory: Present CTA bilaterally; Absent rhonchi, wheezes or crackles *Routine Cardiovascular Exam Cardiovascular: Present RRR *Routine Abdominal Exam Abdominal: Present soft and normoactive bowel sounds *Routine Rectal Exam Patient deferred: visual exam *Routine Exam Patient deferred: external exam *Routine Extremities Exam Extremities: Absent cyanosis, clubbing or edema *Routine Skin Exam Skin: Present warm; Absent rash *Routine Neurological Exam Neurological: Present alert, oriented X3 and moving all extremities; Absent altered mental status Results Data Completed and Pending Labs on day of discharge: Labs from last 24 hours 01/25/25 01/25/25 01/25/25 16:45 13:29 11:21 WBC RBC Hgb Hct MCV MCH MCHC RDW Plt Count MPV Neut % (Auto) Lymph % (Auto) Amador % (Auto) Eos % (Auto) Baso % (Auto) Neut # (Auto) Lymph # (Auto) Am[place] # (Auto) Eos # (Auto) Baso # (Auto) VBG pH VBG pCO2 VBG pO2 VBG HCO3 VBG Total CO2 VBG O2 Saturation VBG Base Excess VBG Lactic Acid Sodium Potassium Chloride Carbon Dioxide Anion Gap BUN Creatinine Estimated GFR Est GFR ( Amer) Glucose Lactate 1.4 Calcium Total Bilirubin AST ALT Alkaline Phosphatase Troponin I < 0.01 < 0.01 NT-Pro-B Natriuret Pep Total Protein Albumin Globulin Albumin/Globulin Ratio SARS-CoV-2 (PCR) Not detected HCV Ab LOCO w/Rflx PCR Qn HIV Ag/Ab Combo Qual Influenza A Untype (PCR) Not detected Influenza Type B (PCR) Not detected 01/25/25 01/25/25 10:59 10:35 WBC 15.4 H RBC 4.76 Hgb 13.7 Hct 42.8 MCV 89.9 MCH 28.8 MCHC 32.0 RDW 14.6 Plt Count 269 MPV 11.0 H Neut % (Auto) 72.0 Lymph % (Auto) 14.2 Am[place] % (Auto) 9.9 H Eos % (Auto) 3.2 Baso % (Auto) 0.4 Neut # (Auto) 11.1 H Lymph # (Auto) 2.2 [place] # (Auto) 1.5 H Eos # (Auto) 0.5 H Baso # (Auto) 0.1 VBG pH 7.34 VBG pCO2 52.7 H VBG pO2 48.5 H VBG HCO3 27.5 VBG Total CO2 29.1 H VBG O2 Saturation 84.4 H VBG Base Excess 1.6 VBG Lactic Acid 2.4 H Sodium 135 L Potassium 3.9 Chloride 98 Carbon Dioxide 30 Anion Gap 10.9 BUN 13 Creatinine 0.90 Estimated GFR 62 Est GFR ( Amer) 75 Glucose 148 H Lactate Calcium 9.1 Total Bilirubin 0.3 AST 19 ALT 16 Alkaline Phosphatase 140 H Troponin I < 0.01 NT-Pro-B Natriuret Pep 39.4 Total Protein 6.5 Albumin 3.9 Globulin 2.6 Albumin/Globulin Ratio 1.5 SARS-CoV-2 (PCR) HCV Ab LOCO w/Rflx PCR Qn Negative HIV Ag/Ab Combo Qual Negative Influenza A Untype (PCR) Influenza Type B (PCR) DS: Diagnosis Discharge Diagnosis (1) COPD (chronic obstructive pulmonary disease): Status: Chronic Code(s): J44.9 - Chronic obstructive pulmonary disease, unspecified Qualifiers: COPD type: COPD with acute exacerbation Qualified Code(s): J44.1 - Chronic obstructive pulmonary disease with (acute) exacerbation (2) Angina pectoris, unstable: Status: Acute Code(s): I20.0 - Unstable angina (3) Class 2 obesity: Status: Chronic Code(s): E66.812 - Obesity, class 2 (4) High blood pressure: Status: Chronic Code(s): I10 - Essential (primary) hypertension Qualifiers: Hypertension type: primary hypertension Qualified Code(s): I10 - Essential (primary) hypertension Meds Home Medications and Allergies Home Medications ?Medication ?Instructions ?Recorded ?Confirmed ?Type aspirin 81 mg chewable tablet 81 mg PO DAILY 01/11/23 01/25/25 History fluoxetine 40 mg capsule 40 mg PO DAILY 01/11/23 01/25/25 History lisinopril 10 mg tablet 10 mg PO BID 01/11/23 01/25/25 History theophylline 400 mg 400 mg PO DAILY 01/11/23 01/25/25 History tablet,extended release 24 hr tizanidine 4 mg tablet 4 mg PO DAILYP PRN Muscle Spasm 01/11/23 01/25/25 History apixaban 5 mg tablet (Eliquis) 5 mg PO BID 01/25/25 01/25/25 History doxycycline hyclate 100 mg tablet 100 mg PO BID 4 days #8 tabs 01/26/25 Rx prednisone 20 mg tablet 40 mg (2 x 20 mg) PO DAILY 4 days 01/26/25 Rx #8 tabs New Prescriptions to Start Prescriptions: doxycycline hyclate Sukumar Bhakta prednisone Sukumar Bhakta Allergies Allergy/AdvReac Type Severity Reaction Status Date / Time Penicillins Allergy Verified 01/11/23 08:19 Sulfa (Sulfonamide Allergy Verified 01/11/23 08:19 Antibiotics) Discharge Plan Disposition Patient Disposition: Home, Self-Care Condition: Fair Follow up Plan Follow up with: Shay Llamas MD [Staff Physician, Cardiology] - Enter time for follow up Referral Note: Office will call with follow up appointment Jer Hernandez MD [Physician, Pulmonology] - Enter time for follow up Referral Note: Office will call with follow up appointment Prescriptions/Medication Reconciliation: New doxycycline hyclate 100 mg Tablet 100 mg PO BID 4 Days Qty: 8 0RF prednisone 20 mg tablet 40 mg PO DAILY 4 Days Qty: 8 0RF Continued Eliquis 5 mg tablet 5 mg PO BID fluoxetine 40 mg Capsule 40 mg PO DAILY tizanidine 4 mg Tablet 4 mg PO DAILYP PRN (Reason: Muscle Spasm) aspirin 81 mg Tablet,Chewable 81 mg PO DAILY lisinopril 10 mg Tablet 10 mg PO BID theophylline 400 mg tablet extended release 24 hr 400 mg PO DAILY Problem Reconciliation Problems Reviewed?: Yes Patient Discharge Instructions ACTIVITY: Continue current activity DIET: continue same diet Patient Instructions: Chronic Obstructive Pulmonary Disease, Angina Print Language: Mosotho Providers Primary Care Provider: Deuce Souza Admit Provider: Sukumar Bhakta Attending Provider: Sukumar Bhakta
[2025-01-26 07:57] LABS: Hematocrit 38.5 % (37.0-47.0); Hemoglobin 12.4 g/dL (12.2-16.2); Immature Granulocytes % 0.3 %; Mean Corpuscular HGB Conc 32.2 g/dL (31.8-35.4); Mean Corpuscular Hemoglobin 29.2 pg (27.0-31.2); Mean Corpuscular Volume 90.8 fl (81-99); Nucleated Red Blood Cells % 0 %; Platelet Count 212 K/mm3 (142-424); Red Blood Count 4.24 M/mm3 (4.20-5.40); Red Cell Distribution Width-SD 49.2 fL; White Blood Count 10.6 K/mm3 (4.8-10.8)
[2025-01-26 08:00] VITALS: BP 113/58; PULSE 70; PULSE 72; RESP 16; TEMP 37.2; O2SAT 98
[2025-01-26 08:02] LABS: Albumin Level 3.5 g/dl (3.5-5.0); Chloride 95 mmol/L (98-107); Potassium 3.9 mmoL/L (3.5-5.1); Sodium 132 mmol/L (136-145)
[2025-01-26 08:04] LABS: Blood Urea Nitrogen 16 mg/dl (7-17); Creatinine Clearance Estimated 58 mL/min (50-200); Creatinine,Serum 1.20 mg/dl (0.52-1.04); Estimated Glomerular Filt Rate 45 ml/min (>60); GFR (African American) 54 ML/MIN (>60)
[2025-01-26 08:05] LABS: Alanine Aminotransferase 25 U/L (12-78); Albumin/Globulin Ratio 1.5 (1.1-1.8); Alkaline Phosphatase 126 U/L (38-126); Anion Gap 14.9 mEq/L (5-15); Aspartate Amino Transferase 23 U/L (14-36); Bilirubin,Total 1.0 mg/dl (0.2-1.3); Calcium 8.8 mg/dl (8.4-10.2); Carbon Dioxide 26 mmol/L (22.0-30.0); Globulin 2.4 g/dL (1.3-3.2); Glucose 239 mg/dl (74-100); Magnesium 1.7 mg/dl (1.6-2.3); Total Protein,Serum 5.9 g/dl (6.3-8.2)
[2025-01-26] MEDS: FLUOXETINE 20MG CAPSULE 40 MG PO (09:59)
[2025-01-26] MEDS: ASPIRIN 81MG CHEWABLE TABLET 81 MG PO (09:59)
[2025-01-26] MEDS: DOXYCYCLINE HYCL 100 MG TABLET PO (10:00)
--- NOTE | 2025-01-26 10:02 | PC.NURSE ---
pt stated that she does not take her eliquis or theophylline in the morning and would rather take it this afternoon. pt states that she will let me know when she is ready to take medications.
--- NOTE | 2025-01-29 10:29 | SW/DCPLANNER ---
Phoned patient x2. Left message with name and a call back number each time. Apolonia Garcia
== END 2025-01-26 12:16 | disposition home or self-care (01) ==
LOC: ER 15:03 → 2ND 15:09
PROVIDERS: Admitting Provider Internal Medicine Adolescent Medicine; Emergency Provider Emergency Medicine; PCP Internal Medicine; Visit Provider Internal Medicine Adolescent Medicine
DX: I20.0 Unstable angina (principal); J44.1 Chronic obstructive pulmonary disease with (acute) exacerbation; E66.812 Obesity, class 2; I10 Essential (primary) hypertension; F32.A Depression, unspecified; I48.91 Unspecified atrial fibrillation; M62.838 Other muscle spasm; E78.00 Pure hypercholesterolemia, unspecified; R91.1 Solitary pulmonary nodule; F17.200 Nicotine dependence, unspecified, uncomplicated; Z88.2 Allergy status to sulfonamides; Z88.0 Allergy status to penicillin; Z68.29 Body mass index [BMI] 29.0-29.9, adult; Z95.0 Presence of cardiac pacemaker; Z99.81 Dependence on supplemental oxygen; Z79.01 Long term (current) use of anticoagulants; Z79.82 Long term (current) use of aspirin; Z79.899 Other long term (current) drug therapy
CPT/HCPCS: 36415; 71275; 80053; 82803; 83605; 83735; 83880; 84484; 85025; 86803; 87389; 87636; 93005; 94640; 94760; 94761; 96374; 96375; 96376; 99285; G0378; J1885; J2270; Q9967